=== PATIENT | male | born 1945 | race Caucasian/White ===

== ENCOUNTER → 2018-06-09 09:17 | Outpatient (CLI) | payer MEDICARE, OTHER, SELFPAY ==
[2018-06-09 11:22] LABS: Abs Immature Grans 0.04 k/cumm (0.0-0.09); Absolute Basophil Count 0.02 k/cumm (0.0-0.2); Absolute Eosinophil Count 0.08 k/cumm (0.0-0.7); Absolute Lymphocyte Count 0.57 k/cumm (1.2-3.4); Absolute Monocyte Count 0.58 k/cumm (0.11-0.7); Absolute Neutrophil Count 5.64 k/cumm (1.2-6.7); Basophils % 0.3; Eosinophils % 1.2; HCT 40.2 % (40.0-50.0); HGB 12.4 g/dL (13.5-17.5); Immature Grans % 0.6; Lymphocytes % 8.2; Mean Corp. HGB Concentration 30.8 g/dL (32.0-36.0); Mean Corpuscular Volume 77.9 fL (80-95); Monocytes % 8.4; Neutrophils % 81.3; Platelet Count 127 x1000/uL (130-400); RBC 5.16 m/cumm (4.50-6.00); RBC Distribution Width 17.8 % (11.8-14.1); White Blood Cell Count 6.93 k/cumm (4.4-10.8)
[2018-06-09 11:34] LABS: Prothrombin Time 40.3 sec (9.3-10.8)
[2018-06-09 11:43] LABS: ALT 83 U/L (12-78); AST 45 U/L (15-37); Albumin 3.4 g/dL (3.4-5.0); Alkaline Phosphatase 172 U/L (46-116); Anion Gap 13.5 mmol/L (3-11); BUN 20 mg/dL (7-18); CO2 22.5 mmol/L (21.0-32.0); CREATININE 0.95 mg/dL (0.70-1.30); Calcium 8.2 mg/dL (8.5-10.1); Chloride 104 mmol/L (98-107); Glucose 121 mg/dL (70-100); Potassium 3.8 mmol/L (3.5-5.1); Sodium 140 mmol/L (136-145); Total Protein 6.6 g/dL (6.4-8.2)
[2018-06-09 11:45] LABS: Hemoglobin A1C 11.2 % (4.5-6.2)
[2018-06-09 11:52] LABS: INR 4.4 (1.0-3.5)
== END ==
PROVIDERS: Internal Medicine Gastroenterology; PCP Emergency Medicine; Visit Provider Emergency Medicine
DX: E11.9 Type 2 diabetes mellitus without complications (principal); I26.99 Other pulmonary embolism without acute cor pulmonale; K75.4 Autoimmune hepatitis; D69.3 Immune thrombocytopenic purpura; Z79.01 Long term (current) use of anticoagulants
CPT/HCPCS: 36415; 80053; 83036; 85025; 85610

== ENCOUNTER → 2018-06-16 10:15 | Outpatient (CLI) | payer MEDICARE, OTHER, SELFPAY ==
[2018-06-16 11:03] LABS: Abs Immature Grans 0.03 k/cumm (0.0-0.09); Absolute Basophil Count 0.02 k/cumm (0.0-0.2); Absolute Eosinophil Count 0.09 k/cumm (0.0-0.7); Absolute Lymphocyte Count 0.73 k/cumm (1.2-3.4); Absolute Monocyte Count 0.57 k/cumm (0.11-0.7); Absolute Neutrophil Count 5.41 k/cumm (1.2-6.7); Basophils % 0.3; Eosinophils % 1.3; HCT 43.1 % (40.0-50.0); HGB 13.3 g/dL (13.5-17.5); Immature Grans % 0.4; Lymphocytes % 10.7; Mean Corp. HGB Concentration 30.9 g/dL (32.0-36.0); Mean Corpuscular Hemoglobin 24.1 pg (27.0-33.0); Mean Corpuscular Volume 77.9 fL (80-95); Mean Platelet Volume 10.8 fL (8.0-11.0); Monocytes % 8.3; Platelet Count 142 x1000/uL (130-400); RBC 5.53 m/cumm (4.50-6.00); White Blood Cell Count 6.85 k/cumm (4.4-10.8)
[2018-06-16 11:11] LABS: INR 1.4 (1.0-3.5); Prothrombin Time 13.8 sec (9.3-10.8)
[2018-06-16 11:17] LABS: ALT 80 U/L (12-78); AST 51 U/L (15-37); Albumin 3.6 g/dL (3.4-5.0); Alkaline Phosphatase 209 U/L (46-116); BUN 16 mg/dL (7-18); Bilirubin, Total 2.3 mg/dL (0.2-1.0); Calcium 9.3 mg/dL (8.5-10.1); Chloride 99 mmol/L (98-107); Glucose 129 mg/dL (70-100); Potassium 4.1 mmol/L (3.5-5.1); Sodium 137 mmol/L (136-145); Total Protein 7.7 g/dL (6.4-8.2)
[2018-06-16 11:38] LABS: Anisocytosis 2+; Diff Comment RBC Morph Reviewed; Hypochromasia 1+; Microcytosis 2+; Poikilocytes 1+; Polychromasia Present
== END ==
PROVIDERS: PCP Emergency Medicine; Visit Provider Emergency Medicine
DX: D69.6 Thrombocytopenia, unspecified (principal); Z79.01 Long term (current) use of anticoagulants; K72.00 Acute and subacute hepatic failure without coma; K75.4 Autoimmune hepatitis; D69.3 Immune thrombocytopenic purpura; I26.99 Other pulmonary embolism without acute cor pulmonale
CPT/HCPCS: 36415; 80053; 85025; 85610

== ENCOUNTER → 2018-06-23 08:28 | Outpatient (CLI) | payer MEDICARE, OTHER, SELFPAY ==
[2018-06-23 10:28] LABS: Abs Immature Grans 0.02 k/cumm (0.0-0.09); Absolute Basophil Count 0.01 k/cumm (0.0-0.2); Absolute Eosinophil Count 0.08 k/cumm (0.0-0.7); Absolute Lymphocyte Count 0.72 k/cumm (1.2-3.4); Absolute Monocyte Count 0.62 k/cumm (0.11-0.7); Absolute Neutrophil Count 3.89 k/cumm (1.2-6.7); Basophils % 0.2; Eosinophils % 1.5; HCT 41.5 % (40.0-50.0); HGB 12.7 g/dL (13.5-17.5); Immature Grans % 0.4; Lymphocytes % 13.5; Mean Corp. HGB Concentration 30.6 g/dL (32.0-36.0); Mean Corpuscular Hemoglobin 24.1 pg (27.0-33.0); Mean Corpuscular Volume 78.7 fL (80-95); Mean Platelet Volume 10.1 fL (8.0-11.0); Monocytes % 11.6; Neutrophils % 72.8; Platelet Count 133 x1000/uL (130-400); RBC 5.27 m/cumm (4.50-6.00); RBC Distribution Width 18.6 % (11.8-14.1); White Blood Cell Count 5.34 k/cumm (4.4-10.8)
[2018-06-23 10:37] LABS: INR 2.8 (1.0-3.5); Prothrombin Time 26.6 sec (9.3-10.8)
[2018-06-23 11:28] LABS: ALT 105 U/L (12-78); AST 76 U/L (15-37); Albumin 3.6 g/dL (3.4-5.0); Alkaline Phosphatase 240 U/L (46-116); Anion Gap 8.1 mmol/L (3-11); BUN 16 mg/dL (7-18); Bilirubin, Direct 0.31 mg/dL (0.00-0.20); Bilirubin, Total 1.2 mg/dL (0.2-1.0); CO2 25.9 mmol/L (21.0-32.0); CREATININE 0.99 mg/dL (0.70-1.30); Calcium 8.8 mg/dL (8.5-10.1); Chloride 102 mmol/L (98-107); Glucose 144 mg/dL (70-100); Potassium 4.3 mmol/L (3.5-5.1); Sodium 136 mmol/L (136-145); Total Protein 6.8 g/dL (6.4-8.2)
== END ==
PROVIDERS: PCP Emergency Medicine; Visit Provider Emergency Medicine
DX: K75.9 Inflammatory liver disease, unspecified (principal); D69.6 Thrombocytopenia, unspecified; I26.99 Other pulmonary embolism without acute cor pulmonale; Z79.01 Long term (current) use of anticoagulants
CPT/HCPCS: 36415; 80053; 82247; 82248; 85025; 85610

== ENCOUNTER → 2018-07-01 03:40 | Outpatient (CLI) | payer MEDICARE, OTHER, SELFPAY ==
[2018-07-01 09:42] LABS: Abs Immature Grans 0.03 k/cumm (0.0-0.09); Absolute Basophil Count 0.02 k/cumm (0.0-0.2); Absolute Eosinophil Count 0.06 k/cumm (0.0-0.7); Absolute Lymphocyte Count 0.53 k/cumm (1.2-3.4); Absolute Monocyte Count 0.74 k/cumm (0.11-0.7); Absolute Neutrophil Count 4.65 k/cumm (1.2-6.7); Basophils % 0.3; HCT 40.3 % (40.0-50.0); HGB 12.3 g/dL (13.5-17.5); Immature Grans % 0.5; Lymphocytes % 8.8; Mean Corp. HGB Concentration 30.5 g/dL (32.0-36.0); Mean Corpuscular Hemoglobin 23.8 pg (27.0-33.0); Mean Corpuscular Volume 77.9 fL (80-95); Mean Platelet Volume 9.7 fL (8.0-11.0); Monocytes % 12.3; Neutrophils % 77.1; Platelet Count 132 x1000/uL (130-400); RBC 5.17 m/cumm (4.50-6.00); RBC Distribution Width 18.6 % (11.8-14.1); White Blood Cell Count 6.03 k/cumm (4.4-10.8)
[2018-07-01 09:47] LABS: INR 3.6 (1.0-3.5); Prothrombin Time 33.6 sec (9.3-10.8)
[2018-07-01 10:33] LABS: ALT 87 U/L (12-78); AST 71 U/L (15-37); Albumin 3.6 g/dL (3.4-5.0); Alkaline Phosphatase 207 U/L (46-116); BUN 17 mg/dL (7-18); Bilirubin, Total 1.1 mg/dL (0.2-1.0); CREATININE 0.99 mg/dL (0.70-1.30); Calcium 8.4 mg/dL (8.5-10.1); Chloride 104 mmol/L (98-107); Glucose 110 mg/dL (70-100); Potassium 4.1 mmol/L (3.5-5.1); Sodium 137 mmol/L (136-145); Total Protein 6.6 g/dL (6.4-8.2)
== END ==
PROVIDERS: PCP Emergency Medicine; Visit Provider Emergency Medicine
DX: D69.6 Thrombocytopenia, unspecified (principal); I26.99 Other pulmonary embolism without acute cor pulmonale; Z79.01 Long term (current) use of anticoagulants
CPT/HCPCS: 36415; 80053; 85025; 85610

== ENCOUNTER 2018-07-08 10:17 | Outpatient (CLI) | payer MEDICARE, OTHER, SELFPAY ==
[2018-07-08 11:28] LABS: Abs Immature Grans 0.02 k/cumm (0.0-0.09); Absolute Basophil Count 0.02 k/cumm (0.0-0.2); Absolute Eosinophil Count 0.04 k/cumm (0.0-0.7); Absolute Lymphocyte Count 0.69 k/cumm (1.2-3.4); Absolute Monocyte Count 0.44 k/cumm (0.11-0.7); Basophils % 0.3; Eosinophils % 0.6; HCT 39.5 % (40.0-50.0); HGB 12.3 g/dL (13.5-17.5); Immature Grans % 0.3; Lymphocytes % 10.6; Mean Corp. HGB Concentration 31.1 g/dL (32.0-36.0); Mean Corpuscular Hemoglobin 24.3 pg (27.0-33.0); Mean Corpuscular Volume 77.9 fL (80-95); Mean Platelet Volume 10.5 fL (8.0-11.0); Monocytes % 6.8; Neutrophils % 81.4; Platelet Count 137 x1000/uL (130-400); RBC 5.07 m/cumm (4.50-6.00); RBC Distribution Width 18.7 % (11.8-14.1); White Blood Cell Count 6.51 k/cumm (4.4-10.8)
[2018-07-08 11:30] LABS: INR 3.9 (1.0-3.5); Prothrombin Time 36.4 sec (9.3-10.8)
[2018-07-08 12:23] LABS: ALT 71 U/L (12-78); AST 50 U/L (15-37); Albumin 3.5 g/dL (3.4-5.0); Alkaline Phosphatase 219 U/L (46-116); Anion Gap 8.3 mmol/L (3-11); BUN 20 mg/dL (7-18); Bilirubin, Total 1.1 mg/dL (0.2-1.0); CO2 26.7 mmol/L (21.0-32.0); CREATININE 1.25 mg/dL (0.70-1.30); Calcium 8.7 mg/dL (8.5-10.1); Chloride 100 mmol/L (98-107); Estimated GFR 56.31 (mL/min/1.73m2); Glucose 368 mg/dL (70-100); Potassium 4.6 mmol/L (3.5-5.1); Sodium 135 mmol/L (136-145); Total Protein 6.4 g/dL (6.4-8.2)
== END 2018-07-08 10:37 ==
PROVIDERS: PCP Emergency Medicine; Visit Provider Emergency Medicine
DX: I26.99 Other pulmonary embolism without acute cor pulmonale (principal); Z79.01 Long term (current) use of anticoagulants; D69.6 Thrombocytopenia, unspecified
CPT/HCPCS: 36415; 80053; 85025; 85610

== ENCOUNTER 2018-07-14 08:55 | Outpatient (CLI) | payer MEDICARE, OTHER, SELFPAY ==
[2018-07-14 15:27] LABS: Abs Immature Grans 0.02 k/cumm (0.0-0.09); Absolute Basophil Count 0.01 k/cumm (0.0-0.2); Absolute Eosinophil Count 0.07 k/cumm (0.0-0.7); Absolute Lymphocyte Count 0.69 k/cumm (1.2-3.4); Absolute Monocyte Count 0.43 k/cumm (0.11-0.7); Absolute Neutrophil Count 4.63 k/cumm (1.2-6.7); Basophils % 0.2; Eosinophils % 1.2; HCT 41.4 % (40.0-50.0); HGB 12.6 g/dL (13.5-17.5); Immature Grans % 0.3; Lymphocytes % 11.8; Mean Corp. HGB Concentration 30.4 g/dL (32.0-36.0); Mean Corpuscular Hemoglobin 24.1 pg (27.0-33.0); Mean Corpuscular Volume 79.2 fL (80-95); Mean Platelet Volume 9.8 fL (8.0-11.0); Monocytes % 7.4; Neutrophils % 79.1; Platelet Count 157 x1000/uL (130-400); RBC 5.23 m/cumm (4.50-6.00); RBC Distribution Width 19.1 % (11.8-14.1); White Blood Cell Count 5.85 k/cumm (4.4-10.8)
[2018-07-14 15:40] LABS: INR 2.6 (1.0-3.5); Prothrombin Time 24.3 sec (9.3-10.8)
[2018-07-14 16:26] LABS: Anisocytosis 1+; Microcytosis 2+; Poikilocytes 1+
[2018-07-14 16:31] LABS: ALT 91 U/L (12-78); AST 74 U/L (15-37); Albumin 3.6 g/dL (3.4-5.0); Alkaline Phosphatase 255 U/L (46-116); Anion Gap 7.5 mmol/L (3-11); BUN 15 mg/dL (7-18); Bilirubin, Total 1.5 mg/dL (0.2-1.0); CO2 30.5 mmol/L (21.0-32.0); CREATININE 0.95 mg/dL (0.70-1.30); Calcium 8.9 mg/dL (8.5-10.1); Chloride 103 mmol/L (98-107); Glucose 174 mg/dL (70-100); Potassium 4.4 mmol/L (3.5-5.1); Sodium 141 mmol/L (136-145); Total Protein 6.8 g/dL (6.4-8.2)
== END 2018-07-14 09:15 ==
PROVIDERS: PCP Emergency Medicine; Visit Provider Emergency Medicine
DX: I26.99 Other pulmonary embolism without acute cor pulmonale (principal); Z79.01 Long term (current) use of anticoagulants; D69.6 Thrombocytopenia, unspecified
CPT/HCPCS: 36415; 80053; 85025; 85610

== ENCOUNTER 2018-07-21 10:17 | Outpatient (CLI) | payer MEDICARE, OTHER, SELFPAY ==
[2018-07-21 17:41] LABS: INR 3.4 (1.0-3.5); Prothrombin Time 31.9 sec (9.3-10.8)
[2018-07-21 17:45] LABS: Abs Immature Grans 0.02 k/cumm (0.0-0.09); Absolute Basophil Count 0.01 k/cumm (0.0-0.2); Absolute Eosinophil Count 0.01 k/cumm (0.0-0.7); Absolute Lymphocyte Count 0.55 k/cumm (1.2-3.4); Absolute Monocyte Count 0.19 k/cumm (0.11-0.7); Absolute Neutrophil Count 7.85 k/cumm (1.2-6.7); Basophils % 0.1; Eosinophils % 0.1; HGB 13.3 g/dL (13.5-17.5); Immature Grans % 0.2; Lymphocytes % 6.4; Mean Corp. HGB Concentration 30.9 g/dL (32.0-36.0); Mean Corpuscular Volume 77.5 fL (80-95); Mean Platelet Volume 10.3 fL (8.0-11.0); Monocytes % 2.2; Platelet Count 191 x1000/uL (130-400); RBC 5.55 m/cumm (4.50-6.00); RBC Distribution Width 19.7 % (11.8-14.1); White Blood Cell Count 8.63 k/cumm (4.4-10.8)
[2018-07-21 18:41] LABS: ALT 136 U/L (12-78); AST 79 U/L (15-37); Albumin 3.9 g/dL (3.4-5.0); Alkaline Phosphatase 270 U/L (46-116); Anion Gap 12.6 mmol/L (3-11); BUN 25 mg/dL (7-18); Bilirubin, Total 1.4 mg/dL (0.2-1.0); CO2 23.4 mmol/L (21.0-32.0); CREATININE 1.05 mg/dL (0.70-1.30); Calcium 9.4 mg/dL (8.5-10.1); Chloride 102 mmol/L (98-107); Glucose 153 mg/dL (70-100); Potassium 4.9 mmol/L (3.5-5.1); Sodium 138 mmol/L (136-145); Total Protein 7.1 g/dL (6.4-8.2)
== END 2018-07-21 10:37 ==
PROVIDERS: PCP Emergency Medicine; Visit Provider Emergency Medicine
DX: I26.99 Other pulmonary embolism without acute cor pulmonale (principal); Z79.01 Long term (current) use of anticoagulants; D69.6 Thrombocytopenia, unspecified
CPT/HCPCS: 36415; 80053; 85025; 85610

== ENCOUNTER 2018-07-28 08:44 | Outpatient (CLI) | payer MEDICARE, OTHER, SELFPAY ==
[2018-07-28 17:35] LABS: INR 3.7 (1.0-3.5); Prothrombin Time 34.3 sec (9.3-10.8)
[2018-07-28 17:36] LABS: Abs Immature Grans 0.03 k/cumm (0.0-0.09); Absolute Basophil Count 0.01 k/cumm (0.0-0.2); Absolute Eosinophil Count 0.01 k/cumm (0.0-0.7); Absolute Lymphocyte Count 0.66 k/cumm (1.2-3.4); Absolute Neutrophil Count 7.25 k/cumm (1.2-6.7); Basophils % 0.1; Eosinophils % 0.1; HCT 47.4 % (40.0-50.0); HGB 14.5 g/dL (13.5-17.5); Immature Grans % 0.4; Lymphocytes % 8.1; Mean Corp. HGB Concentration 30.6 g/dL (32.0-36.0); Mean Corpuscular Hemoglobin 23.8 pg (27.0-33.0); Mean Corpuscular Volume 77.8 fL (80-95); Mean Platelet Volume 10.6 fL (8.0-11.0); Monocytes % 2.5; Neutrophils % 88.8; Platelet Count 180 x1000/uL (130-400); RBC 6.09 m/cumm (4.50-6.00); RBC Distribution Width 20.2 % (11.8-14.1); White Blood Cell Count 8.16 k/cumm (4.4-10.8)
[2018-07-28 18:11] LABS: ALT 110 U/L (12-78); AST 81 U/L (15-37); Alkaline Phosphatase 268 U/L (46-116); Anion Gap 11.6 mmol/L (3-11); BUN 28 mg/dL (7-18); Bilirubin, Total 1.1 mg/dL (0.2-1.0); CO2 27.4 mmol/L (21.0-32.0); CREATININE 1.03 mg/dL (0.70-1.30); Calcium 9.4 mg/dL (8.5-10.1); Chloride 100 mmol/L (98-107); Glucose 224 mg/dL (70-100); Potassium 4.7 mmol/L (3.5-5.1); Sodium 139 mmol/L (136-145); Total Protein 7.5 g/dL (6.4-8.2)
== END 2018-07-28 09:04 ==
PROVIDERS: PCP Emergency Medicine; Visit Provider Emergency Medicine
DX: I26.99 Other pulmonary embolism without acute cor pulmonale (principal); Z79.01 Long term (current) use of anticoagulants; D69.6 Thrombocytopenia, unspecified
CPT/HCPCS: 36415; 80053; 85025; 85610

== ENCOUNTER 2018-07-30 09:40 | Outpatient (CLI) | payer MEDICARE, OTHER, SELFPAY ==
[2018-07-30 16:19] LABS: INR 2.1 (1.0-3.5)
== END 2018-07-30 10:00 ==
PROVIDERS: PCP Emergency Medicine; Visit Provider Emergency Medicine
DX: I26.99 Other pulmonary embolism without acute cor pulmonale (principal); Z79.01 Long term (current) use of anticoagulants
CPT/HCPCS: 36415; 85610

== ENCOUNTER 2018-08-18 01:49 | Outpatient (CLI) | payer MEDICARE, OTHER, SELFPAY ==
[2018-08-18 12:03] LABS: Abs Immature Grans 0.04 k/cumm (0.0-0.09); Absolute Basophil Count 0.01 k/cumm (0.0-0.2); Absolute Eosinophil Count 0.07 k/cumm (0.0-0.7); Absolute Lymphocyte Count 0.77 k/cumm (1.2-3.4); Absolute Monocyte Count 0.57 k/cumm (0.11-0.7); Absolute Neutrophil Count 7.95 k/cumm (1.2-6.7); Basophils % 0.1; Eosinophils % 0.7; HCT 46.3 % (40.0-50.0); HGB 14.4 g/dL (13.5-17.5); Immature Grans % 0.4; Lymphocytes % 8.2; Mean Corp. HGB Concentration 31.1 g/dL (32.0-36.0); Mean Corpuscular Hemoglobin 24.4 pg (27.0-33.0); Mean Corpuscular Volume 78.6 fL (80-95); Mean Platelet Volume 10.6 fL (8.0-11.0); Monocytes % 6.1; Neutrophils % 84.5; Platelet Count 190 x1000/uL (130-400); RBC 5.89 m/cumm (4.50-6.00); RBC Distribution Width 20.5 % (11.8-14.1); White Blood Cell Count 9.41 k/cumm (4.4-10.8)
[2018-08-18 12:06] LABS: Hemoglobin A1C 8.7 % (4.5-6.2)
[2018-08-18 12:30] LABS: ALT 130 U/L (12-78); AST 68 U/L (15-37); Albumin 3.9 g/dL (3.4-5.0); Alkaline Phosphatase 230 U/L (46-116); Anion Gap 10.6 mmol/L (3-11); BUN 20 mg/dL (7-18); Bilirubin, Total 1.7 mg/dL (0.2-1.0); CO2 29.4 mmol/L (21.0-32.0); CREATININE 1.02 mg/dL (0.70-1.30); Calcium 9.9 mg/dL (8.5-10.1); Chloride 98 mmol/L (98-107); Glucose 195 mg/dL (70-100); Potassium 4.5 mmol/L (3.5-5.1); Sodium 138 mmol/L (136-145); Total Protein 7.5 g/dL (6.4-8.2)
== END 2018-08-18 02:09 ==
PROVIDERS: PCP Emergency Medicine; Visit Provider Emergency Medicine
DX: E11.9 Type 2 diabetes mellitus without complications (principal); D69.6 Thrombocytopenia, unspecified
CPT/HCPCS: 36415; 80053; 83036; 85025; 85610

== ENCOUNTER 2018-09-01 01:41 | Outpatient (CLI) | payer MEDICARE, OTHER, SELFPAY ==
[2018-09-01 15:35] LABS: Abs Immature Grans 0.03 k/cumm (0.0-0.09); Absolute Basophil Count 0.01 k/cumm (0.0-0.2); Absolute Eosinophil Count 0.02 k/cumm (0.0-0.7); Absolute Lymphocyte Count 0.92 k/cumm (1.2-3.4); Absolute Monocyte Count 0.37 k/cumm (0.11-0.7); Absolute Neutrophil Count 7.83 k/cumm (1.2-6.7); Basophils % 0.1; Eosinophils % 0.2; HCT 44.8 % (40.0-50.0); HGB 14.1 g/dL (13.5-17.5); Immature Grans % 0.3; Mean Corp. HGB Concentration 31.5 g/dL (32.0-36.0); Mean Corpuscular Hemoglobin 24.7 pg (27.0-33.0); Mean Corpuscular Volume 78.6 fL (80-95); Neutrophils % 85.4; Platelet Count 202 x1000/uL (130-400); RBC Distribution Width 19.6 % (11.8-14.1); White Blood Cell Count 9.18 k/cumm (4.4-10.8)
[2018-09-01 15:47] LABS: Anisocytosis 2+; Diff Comment RBC Morph Reviewed
[2018-09-01 15:48] LABS: Hypochromasia 2+; Microcytosis 2+; Polychromasia Present
[2018-09-01 16:55] LABS: ALT 138 U/L (12-78); AST 73 U/L (15-37); Albumin 3.9 g/dL (3.4-5.0); Alkaline Phosphatase 242 U/L (46-116); Anion Gap 15.1 mmol/L (3-11); BUN 24 mg/dL (7-18); Bilirubin, Total 1.5 mg/dL (0.2-1.0); CO2 23.9 mmol/L (21.0-32.0); Calcium 9.5 mg/dL (8.5-10.1); Chloride 98 mmol/L (98-107); Glucose 206 mg/dL (70-100); Potassium 4.5 mmol/L (3.5-5.1); Sodium 137 mmol/L (136-145); Total Protein 7.2 g/dL (6.4-8.2)
== END 2018-09-01 02:01 ==
PROVIDERS: PCP Emergency Medicine; Visit Provider Emergency Medicine
DX: D69.6 Thrombocytopenia, unspecified (principal)
CPT/HCPCS: 36415; 80053; 85025

== ENCOUNTER 2018-09-15 15:50 | Outpatient (CLI) | payer MEDICARE, OTHER, SELFPAY ==
[2018-09-15 17:04] LABS: Abs Immature Grans 0.02 k/cumm (0.0-0.09); Absolute Basophil Count 0.01 k/cumm (0.0-0.2); Absolute Eosinophil Count 0.01 k/cumm (0.0-0.7); Absolute Lymphocyte Count 0.51 k/cumm (1.2-3.4); Absolute Monocyte Count 0.25 k/cumm (0.11-0.7); Absolute Neutrophil Count 6.73 k/cumm (1.2-6.7); Basophils % 0.1; Eosinophils % 0.1; HCT 44.6 % (40.0-50.0); HGB 14.1 g/dL (13.5-17.5); Immature Grans % 0.3; Lymphocytes % 6.8; Mean Corp. HGB Concentration 31.6 g/dL (32.0-36.0); Mean Corpuscular Hemoglobin 25.3 pg (27.0-33.0); Mean Corpuscular Volume 79.9 fL (80-95); Monocytes % 3.3; Neutrophils % 89.4; Platelet Count 156 x1000/uL (130-400); RBC 5.58 m/cumm (4.50-6.00); White Blood Cell Count 7.53 k/cumm (4.4-10.8)
[2018-09-15 17:57] LABS: ALT 185 U/L (12-78); AST 131 U/L (15-37); Albumin 3.9 g/dL (3.4-5.0); Alkaline Phosphatase 215 U/L (46-116); Anion Gap 13.9 mmol/L (3-11); BUN 17 mg/dL (7-18); Bilirubin, Total 0.8 mg/dL (0.2-1.0); CO2 25.1 mmol/L (21.0-32.0); CREATININE 1.06 mg/dL (0.70-1.30); Calcium 9.3 mg/dL (8.5-10.1); Chloride 100 mmol/L (98-107); Glucose 181 mg/dL (70-100); Potassium 4.3 mmol/L (3.5-5.1); Sodium 139 mmol/L (136-145); Total Protein 7.3 g/dL (6.4-8.2)
== END 2018-09-15 16:10 ==
PROVIDERS: PCP Emergency Medicine; Visit Provider Emergency Medicine
DX: D69.6 Thrombocytopenia, unspecified (principal)
CPT/HCPCS: 36415; 80053; 85025

== ENCOUNTER 2018-09-22 07:56 | Outpatient (CLI) | payer MEDICARE, OTHER, SELFPAY ==
[2018-09-22 10:04] LABS: Abs Immature Grans 0.04 k/cumm (0.0-0.09); Absolute Basophil Count 0.02 k/cumm (0.0-0.2); Absolute Eosinophil Count 0.11 k/cumm (0.0-0.7); Absolute Lymphocyte Count 0.74 k/cumm (1.2-3.4); Absolute Monocyte Count 0.57 k/cumm (0.11-0.7); Absolute Neutrophil Count 6.99 k/cumm (1.2-6.7); Basophils % 0.2; Eosinophils % 1.3; HCT 46.1 % (40.0-50.0); HGB 14.4 g/dL (13.5-17.5); Immature Grans % 0.5; Lymphocytes % 8.7; Mean Corp. HGB Concentration 31.2 g/dL (32.0-36.0); Mean Corpuscular Hemoglobin 25.3 pg (27.0-33.0); Mean Corpuscular Volume 80.9 fL (80-95); Mean Platelet Volume 10.7 fL (8.0-11.0); Monocytes % 6.7; Neutrophils % 82.6; Platelet Count 160 x1000/uL (130-400); RBC Distribution Width 19.9 % (11.8-14.1); White Blood Cell Count 8.47 k/cumm (4.4-10.8)
[2018-09-22 11:27] LABS: ALT 162 U/L (12-78); AST 80 U/L (15-37); Alkaline Phosphatase 191 U/L (46-116); Anion Gap 10.9 mmol/L (3-11); BUN 15 mg/dL (7-18); Bilirubin, Total 0.9 mg/dL (0.2-1.0); CO2 29.1 mmol/L (21.0-32.0); CREATININE 1.08 mg/dL (0.70-1.30); Calcium 9.5 mg/dL (8.5-10.1); Chloride 102 mmol/L (98-107); Glucose 83 mg/dL (70-100); Potassium 3.7 mmol/L (3.5-5.1); Sodium 142 mmol/L (136-145); Total Protein 7.2 g/dL (6.4-8.2)
== END 2018-09-22 08:16 ==
PROVIDERS: PCP Emergency Medicine; Visit Provider Emergency Medicine
DX: D69.6 Thrombocytopenia, unspecified (principal)
CPT/HCPCS: 36415; 80053; 85025

== ENCOUNTER 2018-10-06 16:21 | Outpatient (CLI) | payer MEDICARE, OTHER, SELFPAY ==
[2018-10-06 16:58] LABS: Abs Immature Grans 0.02 k/cumm (0.0-0.09); Absolute Basophil Count 0.01 k/cumm (0.0-0.2); Absolute Eosinophil Count 0.01 k/cumm (0.0-0.7); Absolute Monocyte Count 0.29 k/cumm (0.11-0.7); Absolute Neutrophil Count 7.08 k/cumm (1.2-6.7); Basophils % 0.1; Eosinophils % 0.1; HCT 45.4 % (40.0-50.0); HGB 14.6 g/dL (13.5-17.5); Immature Grans % 0.2; Lymphocytes % 7.5; Mean Corp. HGB Concentration 32.2 g/dL (32.0-36.0); Mean Corpuscular Hemoglobin 25.8 pg (27.0-33.0); Mean Corpuscular Volume 80.4 fL (80-95); Mean Platelet Volume 10.5 fL (8.0-11.0); Monocytes % 3.6; Neutrophils % 88.5; Platelet Count 152 x1000/uL (130-400); RBC 5.65 m/cumm (4.50-6.00); RBC Distribution Width 19.3 % (11.8-14.1); White Blood Cell Count 8.01 k/cumm (4.4-10.8)
[2018-10-06 18:01] LABS: ALT 143 U/L (12-78); AST 77 U/L (15-37); Alkaline Phosphatase 172 U/L (46-116); Anion Gap 13.1 mmol/L (3-11); BUN 24 mg/dL (7-18); Bilirubin, Total 1.2 mg/dL (0.2-1.0); CO2 23.9 mmol/L (21.0-32.0); CREATININE 0.94 mg/dL (0.70-1.30); Calcium 9.8 mg/dL (8.5-10.1); Chloride 100 mmol/L (98-107); Glucose 173 mg/dL (70-100); Potassium 4.5 mmol/L (3.5-5.1); Sodium 137 mmol/L (136-145); Total Protein 7.3 g/dL (6.4-8.2)
== END 2018-10-06 16:41 ==
PROVIDERS: PCP Emergency Medicine; Visit Provider Emergency Medicine
DX: D69.6 Thrombocytopenia, unspecified (principal)
CPT/HCPCS: 36415; 80053; 85025

== ENCOUNTER 2018-10-20 10:12 | Outpatient (CLI) | payer MEDICARE, OTHER, SELFPAY ==
[2018-10-20 16:05] LABS: Abs Immature Grans 0.03 k/cumm (0.0-0.09); Absolute Basophil Count 0.01 k/cumm (0.0-0.2); Absolute Eosinophil Count 0.04 k/cumm (0.0-0.7); Absolute Neutrophil Count 6.64 k/cumm (1.2-6.7); Basophils % 0.1; Eosinophils % 0.5; HCT 45.5 % (40.0-50.0); HGB 14.5 g/dL (13.5-17.5); Immature Grans % 0.4; Lymphocytes % 7.9; Mean Corp. HGB Concentration 31.9 g/dL (32.0-36.0); Mean Corpuscular Volume 81.5 fL (80-95); Mean Platelet Volume 9.7 fL (8.0-11.0); Monocytes % 3.9; Neutrophils % 87.2; Platelet Count 117 x1000/uL (130-400); RBC 5.58 m/cumm (4.50-6.00); RBC Distribution Width 19.5 % (11.8-14.1); White Blood Cell Count 7.62 k/cumm (4.4-10.8)
[2018-10-20 16:47] LABS: ALT 90 U/L (12-78); AST 53 U/L (15-37); Albumin 3.8 g/dL (3.4-5.0); Alkaline Phosphatase 136 U/L (46-116); Anion Gap 11.7 mmol/L (3-11); BUN 19 mg/dL (7-18); Bilirubin, Total 1.4 mg/dL (0.2-1.0); CO2 27.3 mmol/L (21.0-32.0); Calcium 9.9 mg/dL (8.5-10.1); Chloride 103 mmol/L (98-107); Glucose 180 mg/dL (70-100); Potassium 4.2 mmol/L (3.5-5.1); Sodium 142 mmol/L (136-145); Total Protein 6.9 g/dL (6.4-8.2)
[2018-10-22 10:27] LABS: Cholesterol 333 mg/dL (50-200); HDL Cholesterol 68 mg/dL (40-60); LDL CHOLESTEROL 202 mg/dL (<100); Triglyceride 414 mg/dL (30-150)
== END 2018-10-20 10:32 ==
PROVIDERS: PCP Emergency Medicine; Visit Provider Emergency Medicine
DX: D69.6 Thrombocytopenia, unspecified (principal); E78.5 Hyperlipidemia, unspecified
CPT/HCPCS: 36415; 80053; 80061; 83721; 85025

== ENCOUNTER 2018-10-30 11:21 | Outpatient (CLI) | payer MEDICARE, OTHER, SELFPAY ==
[2018-10-30 17:05] LABS: Abs Immature Grans 0.01 k/cumm (0.0-0.09); Absolute Basophil Count 0.01 k/cumm (0.0-0.2); Absolute Lymphocyte Count 0.38 k/cumm (1.2-3.4); Absolute Monocyte Count 0.16 k/cumm (0.11-0.7); Absolute Neutrophil Count 6.41 k/cumm (1.2-6.7); Basophils % 0.1; HCT 43.5 % (40.0-50.0); HGB 13.9 g/dL (13.5-17.5); Immature Grans % 0.1; Lymphocytes % 5.5; Mean Corpuscular Hemoglobin 26.3 pg (27.0-33.0); Mean Corpuscular Volume 82.4 fL (80-95); Mean Platelet Volume 10.1 fL (8.0-11.0); Monocytes % 2.3; Platelet Count 132 x1000/uL (130-400); RBC 5.28 m/cumm (4.50-6.00); RBC Distribution Width 18.7 % (11.8-14.1); White Blood Cell Count 6.97 k/cumm (4.4-10.8)
[2018-10-30 18:03] LABS: ALT 129 U/L (12-78); AST 68 U/L (15-37); Albumin 3.7 g/dL (3.4-5.0); Alkaline Phosphatase 142 U/L (46-116); Anion Gap 11.9 mmol/L (3-11); BUN 20 mg/dL (7-18); Bilirubin, Total 1.1 mg/dL (0.2-1.0); CO2 24.1 mmol/L (21.0-32.0); CREATININE 0.95 mg/dL (0.70-1.30); Calcium 9.9 mg/dL (8.5-10.1); Chloride 104 mmol/L (98-107); Glucose 241 mg/dL (70-100); Potassium 4.4 mmol/L (3.5-5.1); Sodium 140 mmol/L (136-145); Total Protein 6.7 g/dL (6.4-8.2)
== END 2018-10-30 11:41 ==
PROVIDERS: PCP Emergency Medicine; Visit Provider Internal Medicine Gastroenterology
DX: D69.6 Thrombocytopenia, unspecified (principal)
CPT/HCPCS: 36415; 80053; 85025

== ENCOUNTER 2018-11-03 08:47 | Outpatient (CLI) | payer MEDICARE, OTHER, SELFPAY ==
[2018-11-03 11:21] LABS: Abs Immature Grans 0.01 k/cumm (0.0-0.09); Absolute Basophil Count 0.01 k/cumm (0.0-0.2); Absolute Eosinophil Count 0.05 k/cumm (0.0-0.7); Absolute Lymphocyte Count 0.54 k/cumm (1.2-3.4); Absolute Monocyte Count 0.57 k/cumm (0.11-0.7); Absolute Neutrophil Count 4.61 k/cumm (1.2-6.7); Basophils % 0.2; Eosinophils % 0.9; HGB 13.9 g/dL (13.5-17.5); Immature Grans % 0.2; Lymphocytes % 9.3; Mean Corp. HGB Concentration 32.3 g/dL (32.0-36.0); Mean Corpuscular Hemoglobin 26.6 pg (27.0-33.0); Mean Corpuscular Volume 82.2 fL (80-95); Mean Platelet Volume 10.2 fL (8.0-11.0); Monocytes % 9.8; Neutrophils % 79.6; Platelet Count 119 x1000/uL (130-400); RBC 5.23 m/cumm (4.50-6.00); RBC Distribution Width 18.4 % (11.8-14.1); White Blood Cell Count 5.79 k/cumm (4.4-10.8)
[2018-11-03 11:37] LABS: Anisocytosis 1+; Diff Comment RBC Morph Reviewed
[2018-11-03 12:04] LABS: ALT 84 U/L (12-78); AST 51 U/L (15-37); Albumin 3.7 g/dL (3.4-5.0); Alkaline Phosphatase 126 U/L (46-116); BUN 15 mg/dL (7-18); CREATININE 0.89 mg/dL (0.70-1.30); Calcium 9.1 mg/dL (8.5-10.1); Chloride 104 mmol/L (98-107); Glucose 78 mg/dL (70-100); Potassium 3.3 mmol/L (3.5-5.1); Sodium 142 mmol/L (136-145); Total Protein 6.6 g/dL (6.4-8.2)
== END 2018-11-03 09:07 ==
PROVIDERS: PCP Emergency Medicine; Visit Provider Emergency Medicine
DX: D69.6 Thrombocytopenia, unspecified (principal)
CPT/HCPCS: 36415; 80053; 85025

== ENCOUNTER 2018-11-10 07:35 | Outpatient (CLI) | payer MEDICARE, OTHER, SELFPAY ==
[2018-11-10 12:44] LABS: Abs Immature Grans 0.03 k/cumm (0.0-0.09); Absolute Eosinophil Count 0.02 k/cumm (0.0-0.7); Absolute Lymphocyte Count 0.61 k/cumm (1.2-3.4); Absolute Neutrophil Count 7.49 k/cumm (1.2-6.7); Eosinophils % 0.2; HCT 46.5 % (40.0-50.0); HGB 14.9 g/dL (13.5-17.5); Immature Grans % 0.4; Lymphocytes % 7.1; Mean Corpuscular Hemoglobin 26.4 pg (27.0-33.0); Mean Corpuscular Volume 82.3 fL (80-95); Mean Platelet Volume 10.5 fL (8.0-11.0); Monocytes % 4.7; Neutrophils % 87.6; Platelet Count 139 x1000/uL (130-400); RBC 5.65 m/cumm (4.50-6.00); RBC Distribution Width 18.7 % (11.8-14.1); White Blood Cell Count 8.55 k/cumm (4.4-10.8)
[2018-11-10 12:55] LABS: ALT 87 U/L (12-78); AST 41 U/L (15-37); Albumin 3.9 g/dL (3.4-5.0); Alkaline Phosphatase 140 U/L (46-116); Anion Gap 12.5 mmol/L (3-11); BUN 20 mg/dL (7-18); Bilirubin, Total 1.3 mg/dL (0.2-1.0); CO2 25.5 mmol/L (21.0-32.0); CREATININE 1.06 mg/dL (0.70-1.30); Calcium 9.9 mg/dL (8.5-10.1); Chloride 102 mmol/L (98-107); Glucose 101 mg/dL (70-100); Sodium 140 mmol/L (136-145); Total Protein 7.6 g/dL (6.4-8.2)
== END 2018-11-10 07:55 ==
PROVIDERS: PCP Emergency Medicine; Visit Provider Emergency Medicine
DX: D69.6 Thrombocytopenia, unspecified (principal)
CPT/HCPCS: 36415; 80053; 85025

== ENCOUNTER 2018-11-17 02:30 | Outpatient (CLI) | payer MEDICARE, OTHER, SELFPAY ==
[2018-11-17 14:42] LABS: Abs Immature Grans 0.01 k/cumm (0.0-0.09); Absolute Basophil Count 0.02 k/cumm (0.0-0.2); Absolute Eosinophil Count 0.12 k/cumm (0.0-0.7); Absolute Lymphocyte Count 0.84 k/cumm (1.2-3.4); Absolute Monocyte Count 0.55 k/cumm (0.11-0.7); Absolute Neutrophil Count 3.93 k/cumm (1.2-6.7); Basophils % 0.4; Eosinophils % 2.2; HCT 47.5 % (40.0-50.0); HGB 15.2 g/dL (13.5-17.5); Immature Grans % 0.2; Lymphocytes % 15.4; Mean Corpuscular Hemoglobin 26.9 pg (27.0-33.0); Mean Corpuscular Volume 84.1 fL (80-95); Monocytes % 10.1; Neutrophils % 71.7; Platelet Count 135 x1000/uL (130-400); RBC 5.65 m/cumm (4.50-6.00); RBC Distribution Width 17.6 % (11.8-14.1); White Blood Cell Count 5.47 k/cumm (4.4-10.8)
[2018-11-17 15:29] LABS: Hemoglobin A1C 7.6 % (4.5-6.2)
[2018-11-17 15:30] LABS: ALT 131 U/L (12-78); AST 101 U/L (15-37); Albumin 3.9 g/dL (3.4-5.0); Alkaline Phosphatase 170 U/L (46-116); Anion Gap 8.6 mmol/L (3-11); BUN 10 mg/dL (7-18); Bilirubin, Total 1.6 mg/dL (0.2-1.0); CO2 28.4 mmol/L (21.0-32.0); CREATININE 1.02 mg/dL (0.70-1.30); Calcium 9.3 mg/dL (8.5-10.1); Chloride 106 mmol/L (98-107); Glucose 123 mg/dL (70-100); Potassium 4.1 mmol/L (3.5-5.1); Sodium 143 mmol/L (136-145); Total Protein 6.8 g/dL (6.4-8.2)
== END 2018-11-17 02:50 ==
PROVIDERS: PCP Emergency Medicine; Visit Provider Emergency Medicine
DX: E11.9 Type 2 diabetes mellitus without complications (principal); D69.6 Thrombocytopenia, unspecified
CPT/HCPCS: 36415; 80053; 83036; 85025

== ENCOUNTER 2018-11-25 09:36 | Outpatient (CLI) | payer MEDICARE, OTHER, SELFPAY ==
[2018-11-25 11:02] LABS: Abs Immature Grans 0.01 k/cumm (0.0-0.09); Absolute Basophil Count 0.03 k/cumm (0.0-0.2); Absolute Eosinophil Count 0.15 k/cumm (0.0-0.7); Absolute Lymphocyte Count 0.88 k/cumm (1.2-3.4); Absolute Monocyte Count 0.55 k/cumm (0.11-0.7); Absolute Neutrophil Count 3.45 k/cumm (1.2-6.7); Basophils % 0.6; HCT 46.3 % (40.0-50.0); HGB 15.1 g/dL (13.5-17.5); Immature Grans % 0.2; Lymphocytes % 17.4; Mean Corp. HGB Concentration 32.6 g/dL (32.0-36.0); Mean Corpuscular Hemoglobin 26.8 pg (27.0-33.0); Mean Corpuscular Volume 82.1 fL (80-95); Mean Platelet Volume 10.3 fL (8.0-11.0); Monocytes % 10.8; Platelet Count 139 x1000/uL (130-400); RBC 5.64 m/cumm (4.50-6.00); White Blood Cell Count 5.07 k/cumm (4.4-10.8)
[2018-11-25 11:55] LABS: ALT 60 U/L (12-78); AST 46 U/L (15-37); Albumin 3.7 g/dL (3.4-5.0); Alkaline Phosphatase 136 U/L (46-116); Anion Gap 10.5 mmol/L (3-11); BUN 16 mg/dL (7-18); Bilirubin, Total 1.3 mg/dL (0.2-1.0); CO2 25.5 mmol/L (21.0-32.0); CREATININE 1.18 mg/dL (0.70-1.30); Chloride 105 mmol/L (98-107); Glucose 182 mg/dL (70-100); Sodium 141 mmol/L (136-145); Total Protein 6.6 g/dL (6.4-8.2)
== END 2018-11-25 09:56 ==
PROVIDERS: PCP Emergency Medicine; Visit Provider Emergency Medicine
DX: D69.6 Thrombocytopenia, unspecified (principal)
CPT/HCPCS: 36415; 80053; 85025

== ENCOUNTER 2018-12-01 09:50 | Outpatient (CLI) | payer MEDICARE, OTHER, SELFPAY ==
[2018-12-01 16:05] LABS: ALT 62 U/L (12-78); AST 50 U/L (15-37); Albumin 3.9 g/dL (3.4-5.0); Alkaline Phosphatase 148 U/L (46-116); Anion Gap 12.6 mmol/L (3-11); BUN 16 mg/dL (7-18); Bilirubin, Total 1.5 mg/dL (0.2-1.0); CO2 26.4 mmol/L (21.0-32.0); Calcium 9.5 mg/dL (8.5-10.1); Chloride 103 mmol/L (98-107); Glucose 82 mg/dL (70-100); Potassium 3.9 mmol/L (3.5-5.1); Sodium 142 mmol/L (136-145); Total Protein 6.9 g/dL (6.4-8.2)
== END 2018-12-01 10:10 ==
PROVIDERS: Internal Medicine Gastroenterology; PCP Emergency Medicine; Visit Provider Emergency Medicine
DX: D69.6 Thrombocytopenia, unspecified (principal)
CPT/HCPCS: 36415; 80053

== ENCOUNTER 2018-12-15 08:30 | Outpatient (CLI) | payer MEDICARE, OTHER, SELFPAY ==
[2018-12-15 12:12] LABS: ALT 70 U/L (12-78); AST 56 U/L (15-37); Albumin 3.8 g/dL (3.4-5.0); Alkaline Phosphatase 163 U/L (46-116); Anion Gap 10.6 mmol/L (3-11); BUN 12 mg/dL (7-18); Bilirubin, Total 1.9 mg/dL (0.2-1.0); CO2 24.4 mmol/L (21.0-32.0); CREATININE 1.03 mg/dL (0.70-1.30); Calcium 9.1 mg/dL (8.5-10.1); Chloride 104 mmol/L (98-107); Glucose 204 mg/dL (70-100); Potassium 4.1 mmol/L (3.5-5.1); Sodium 139 mmol/L (136-145); Total Protein 6.8 g/dL (6.4-8.2)
== END 2018-12-15 08:50 ==
PROVIDERS: PCP Emergency Medicine; Visit Provider Emergency Medicine
DX: D69.6 Thrombocytopenia, unspecified (principal)
CPT/HCPCS: 36415; 80053; 85025

== ENCOUNTER 2018-12-22 02:10 | Outpatient (CLI) | payer MEDICARE, OTHER, SELFPAY ==
[2018-12-22 15:44] LABS: Absolute Basophil Count 0.02 k/cumm (0.0-0.2); Absolute Eosinophil Count 0.19 k/cumm (0.0-0.7); Absolute Lymphocyte Count 0.93 k/cumm (1.2-3.4); Absolute Monocyte Count 0.67 k/cumm (0.11-0.7); Basophils % 0.4; Eosinophils % 3.5; HCT 47.1 % (40.0-50.0); HGB 15.3 g/dL (13.5-17.5); Lymphocytes % 17.2; Mean Corp. HGB Concentration 32.5 g/dL (32.0-36.0); Mean Corpuscular Hemoglobin 26.9 pg (27.0-33.0); Mean Corpuscular Volume 82.9 fL (80-95); Monocytes % 12.4; Neutrophils % 66.5; Platelet Count 144 x1000/uL (130-400); RBC 5.68 m/cumm (4.50-6.00); RBC Distribution Width 15.6 % (11.8-14.1); White Blood Cell Count 5.41 k/cumm (4.4-10.8)
[2018-12-22 17:01] LABS: ALT 59 U/L (12-78); AST 49 U/L (15-37); Albumin 3.9 g/dL (3.4-5.0); Alkaline Phosphatase 173 U/L (46-116); Anion Gap 11.4 mmol/L (3-11); BUN 12 mg/dL (7-18); Bilirubin, Total 1.8 mg/dL (0.2-1.0); CO2 27.6 mmol/L (21.0-32.0); CREATININE 1.01 mg/dL (0.70-1.30); Calcium 9.5 mg/dL (8.5-10.1); Chloride 103 mmol/L (98-107); Glucose 75 mg/dL (70-100); Potassium 3.9 mmol/L (3.5-5.1); Sodium 142 mmol/L (136-145); Total Protein 7.4 g/dL (6.4-8.2)
== END 2018-12-22 02:30 ==
PROVIDERS: PCP Emergency Medicine; Referring Provider Emergency Medicine; Visit Provider Internal Medicine Gastroenterology
DX: D69.6 Thrombocytopenia, unspecified (principal)
CPT/HCPCS: 36415; 80053; 85025

== ENCOUNTER 2019-01-05 11:20 | Outpatient (CLI) | payer MEDICARE, OTHER, SELFPAY ==
[2019-01-05 19:29] LABS: ALT 103 U/L (12-78); AST 83 U/L (15-37); Albumin 4.1 g/dL (3.4-5.0); Alkaline Phosphatase 178 U/L (46-116); Anion Gap 11.2 mmol/L (3-11); BUN 20 mg/dL (7-18); Bilirubin, Total 1.3 mg/dL (0.2-1.0); CO2 25.8 mmol/L (21.0-32.0); CREATININE 0.93 mg/dL (0.70-1.30); Calcium 9.6 mg/dL (8.5-10.1); Chloride 105 mmol/L (98-107); Cholesterol 175 mg/dL (50-200); Glucose 66 mg/dL (70-100); HDL Cholesterol 56 mg/dL (40-60); LDL CHOLESTEROL 79 mg/dL (<100); Potassium 4.1 mmol/L (3.5-5.1); Sodium 142 mmol/L (136-145); Total Protein 6.9 g/dL (6.4-8.2); Triglyceride 230 mg/dL (30-150)
== END 2019-01-05 11:40 ==
PROVIDERS: PCP Emergency Medicine; Visit Provider Emergency Medicine
DX: E78.5 Hyperlipidemia, unspecified (principal); D69.6 Thrombocytopenia, unspecified
CPT/HCPCS: 36415; 80053; 80061; 83721

== ENCOUNTER 2019-01-09 14:19 | Outpatient (CLI) | payer MEDICARE, OTHER, SELFPAY ==
[2019-01-09 17:07] LABS: ALT 77 U/L (12-78); AST 49 U/L (15-37); Albumin 3.9 g/dL (3.4-5.0); Alkaline Phosphatase 165 U/L (46-116); Anion Gap 11.9 mmol/L (3-11); BUN 17 mg/dL (7-18); Bilirubin, Total 1.8 mg/dL (0.2-1.0); CO2 25.1 mmol/L (21.0-32.0); CREATININE 1.01 mg/dL (0.70-1.30); Calcium 9.2 mg/dL (8.5-10.1); Chloride 103 mmol/L (98-107); Glucose 171 mg/dL (70-100); Potassium 3.7 mmol/L (3.5-5.1); Sodium 140 mmol/L (136-145); Total Protein 6.8 g/dL (6.4-8.2)
== END 2019-01-09 14:39 ==
PROVIDERS: PCP Emergency Medicine; Visit Provider Emergency Medicine
DX: D69.6 Thrombocytopenia, unspecified (principal)
CPT/HCPCS: 80053

== ENCOUNTER 2019-01-26 08:15 | Outpatient (CLI) | payer MEDICARE, OTHER, SELFPAY ==
[2019-01-26 15:53] LABS: ALT 65 U/L (12-78); AST 43 U/L (15-37); Albumin 4.4 g/dL (3.4-5.0); Alkaline Phosphatase 191 U/L (46-116); BUN 19 mg/dL (7-18); Bilirubin, Total 1.6 mg/dL (0.2-1.0); CREATININE 0.99 mg/dL (0.70-1.30); Chloride 102 mmol/L (98-107); Glucose 106 mg/dL (70-100); Potassium 3.9 mmol/L (3.5-5.1); Sodium 142 mmol/L (136-145); Total Protein 7.3 g/dL (6.4-8.2)
== END 2019-01-26 08:35 ==
PROVIDERS: PCP Emergency Medicine; Visit Provider Emergency Medicine
DX: D69.6 Thrombocytopenia, unspecified (principal)
CPT/HCPCS: 36415; 80053

== ENCOUNTER 2019-02-08 00:58 | Outpatient (CLI) | payer MEDICARE, OTHER, SELFPAY ==
[2019-02-08 12:05] LABS: ALT 77 U/L (12-78); AST 53 U/L (15-37); Albumin 4.3 g/dL (3.4-5.0); Alkaline Phosphatase 199 U/L (46-116); Anion Gap 10.1 mmol/L (3-11); BUN 17 mg/dL (7-18); Bilirubin, Total 1.6 mg/dL (0.2-1.0); CO2 28.9 mmol/L (21.0-32.0); CREATININE 0.96 mg/dL (0.70-1.30); Calcium 9.5 mg/dL (8.5-10.1); Chloride 102 mmol/L (98-107); Glucose 131 mg/dL (70-100); Sodium 141 mmol/L (136-145); Total Protein 7.2 g/dL (6.4-8.2)
== END 2019-02-08 01:18 ==
PROVIDERS: PCP Emergency Medicine; Visit Provider Emergency Medicine
DX: D69.6 Thrombocytopenia, unspecified (principal)
CPT/HCPCS: 36415; 80053; 85025

== ENCOUNTER 2019-02-23 01:41 | Outpatient (CLI) | payer MEDICARE, OTHER, SELFPAY ==
[2019-02-23 13:17] LABS: ALT 72 U/L (12-78); AST 48 U/L (15-37); Albumin 4.2 g/dL (3.4-5.0); Alkaline Phosphatase 188 U/L (46-116); Anion Gap 11.5 mmol/L (3-11); BUN 18 mg/dL (7-18); Bilirubin, Total 1.7 mg/dL (0.2-1.0); CO2 24.5 mmol/L (21.0-32.0); CREATININE 0.93 mg/dL (0.70-1.30); Calcium 9.4 mg/dL (8.5-10.1); Chloride 103 mmol/L (98-107); Glucose 111 mg/dL (70-100); Potassium 4.1 mmol/L (3.5-5.1); Sodium 139 mmol/L (136-145); Total Protein 7.2 g/dL (6.4-8.2)
== END 2019-02-23 02:01 ==
PROVIDERS: Internal Medicine Gastroenterology; PCP Emergency Medicine; Visit Provider Emergency Medicine
DX: D69.6 Thrombocytopenia, unspecified (principal)
CPT/HCPCS: 36415; 80053

== ENCOUNTER 2019-03-03 01:37 | Outpatient (CLI) | payer MEDICARE, OTHER, SELFPAY ==
[2019-03-03 10:33] LABS: Hemoglobin A1C 6.6 % (4.5-6.2)
[2019-03-03 11:01] LABS: ALT 68 U/L (12-78); AST 51 U/L (15-37); Alkaline Phosphatase 189 U/L (46-116); Anion Gap 14.6 mmol/L (3-11); BUN 20 mg/dL (7-18); Bilirubin, Total 1.5 mg/dL (0.2-1.0); CO2 23.4 mmol/L (21.0-32.0); CREATININE 1.06 mg/dL (0.70-1.30); Calcium 9.5 mg/dL (8.5-10.1); Chloride 102 mmol/L (98-107); Glucose 176 mg/dL (70-100); Potassium 4.1 mmol/L (3.5-5.1); Sodium 140 mmol/L (136-145)
== END 2019-03-03 01:57 ==
PROVIDERS: PCP Emergency Medicine; Visit Provider Emergency Medicine
DX: E11.9 Type 2 diabetes mellitus without complications (principal); D69.6 Thrombocytopenia, unspecified
CPT/HCPCS: 36415; 80053; 83036

== ENCOUNTER 2019-03-16 01:14 | Outpatient (CLI) | payer MEDICARE, OTHER, SELFPAY ==
[2019-03-16 11:07] LABS: ALT 40 U/L (12-78); AST 27 U/L (15-37); Albumin 4.1 g/dL (3.4-5.0); Alkaline Phosphatase 159 U/L (46-116); Anion Gap 10.3 mmol/L (3-11); BUN 18 mg/dL (7-18); Bilirubin, Total 1.8 mg/dL (0.2-1.0); CO2 29.7 mmol/L (21.0-32.0); Calcium 9.9 mg/dL (8.5-10.1); Chloride 102 mmol/L (98-107); Glucose 126 mg/dL (70-100); Potassium 4.1 mmol/L (3.5-5.1); Sodium 142 mmol/L (136-145); Total Protein 7.1 g/dL (6.4-8.2)
== END 2019-03-16 01:34 ==
PROVIDERS: PCP Emergency Medicine; Visit Provider Emergency Medicine
DX: D69.6 Thrombocytopenia, unspecified (principal)
CPT/HCPCS: 36415; 80053

== ENCOUNTER 2019-03-23 02:49 | Outpatient (CLI) | payer MEDICARE, OTHER, SELFPAY ==
[2019-03-23 13:21] LABS: ALT 34 U/L (12-78); AST 28 U/L (15-37); Albumin 3.9 g/dL (3.4-5.0); Alkaline Phosphatase 154 U/L (46-116); Anion Gap 11.4 mmol/L (3-11); BUN 17 mg/dL (7-18); Bilirubin, Total 1.5 mg/dL (0.2-1.0); CO2 26.6 mmol/L (21.0-32.0); CREATININE 1.03 mg/dL (0.70-1.30); Calcium 9.2 mg/dL (8.5-10.1); Chloride 103 mmol/L (98-107); Glucose 104 mg/dL (70-100); Potassium 4.2 mmol/L (3.5-5.1); Sodium 141 mmol/L (136-145); Total Protein 6.8 g/dL (6.4-8.2)
== END 2019-03-23 03:09 ==
PROVIDERS: PCP Emergency Medicine; Visit Provider Internal Medicine Gastroenterology
DX: D69.6 Thrombocytopenia, unspecified (principal)
CPT/HCPCS: 36415; 80053

== ENCOUNTER 2019-04-06 02:03 | Outpatient (CLI) | payer MEDICARE, OTHER, SELFPAY ==
[2019-04-06 10:58] LABS: ALT 32 U/L (12-78); AST 25 U/L (15-37); Alkaline Phosphatase 145 U/L (46-116); Anion Gap 12.5 mmol/L (3-11); BUN 19 mg/dL (7-18); Bilirubin, Total 1.3 mg/dL (0.2-1.0); CO2 25.5 mmol/L (21.0-32.0); CREATININE 1.04 mg/dL (0.70-1.30); Calcium 9.4 mg/dL (8.5-10.1); Chloride 102 mmol/L (98-107); Glucose 179 mg/dL (70-100); Potassium 3.8 mmol/L (3.5-5.1); Sodium 140 mmol/L (136-145)
== END 2019-04-06 02:23 ==
PROVIDERS: PCP Emergency Medicine; Referring Provider Internal Medicine Gastroenterology; Visit Provider Emergency Medicine
DX: D69.6 Thrombocytopenia, unspecified (principal)
CPT/HCPCS: 36415; 80053

== ENCOUNTER 2019-04-27 02:30 | Outpatient (CLI) | payer MEDICARE, OTHER, SELFPAY ==
[2019-04-27 17:11] LABS: ALT 33 U/L (12-78); AST 23 U/L (15-37); Albumin 4.1 g/dL (3.4-5.0); Alkaline Phosphatase 135 U/L (46-116); Anion Gap 14.1 mmol/L (3-11); BUN 17 mg/dL (7-18); Bilirubin, Total 1.9 mg/dL (0.2-1.0); CO2 23.9 mmol/L (21.0-32.0); CREATININE 0.91 mg/dL (0.70-1.30); Calcium 9.6 mg/dL (8.5-10.1); Chloride 105 mmol/L (98-107); Glucose 99 mg/dL (70-100); Potassium 4.1 mmol/L (3.5-5.1); Sodium 143 mmol/L (136-145); Total Protein 7.1 g/dL (6.4-8.2)
== END 2019-04-27 02:50 ==
PROVIDERS: PCP Emergency Medicine; Visit Provider Emergency Medicine
DX: D69.6 Thrombocytopenia, unspecified (principal)
CPT/HCPCS: 80053

== ENCOUNTER 2019-05-18 11:15 | Outpatient (CLI) | payer MEDICARE, OTHER, SELFPAY ==
[2019-05-18 13:18] LABS: Bilirubin Negative (Negative); Blood Negative (Negative); Clarity Clear (Clear); Glucose 500 mg/dL (Negative); Ketones Negative (Negative); Leukocyte Esterase Negative (Negative); Nitrite Negative (Negative); Urobilinogen 0.2 EU/dL (Up TO 0.2); pH 5.5 (5-8)
[2019-05-18 13:22] LABS: Hemoglobin A1C 6.7 % (4.5-6.2)
[2019-05-18 13:58] LABS: ALT 26 U/L (12-78); AST 17 U/L (15-37); Albumin 4.1 g/dL (3.4-5.0); Alkaline Phosphatase 129 U/L (46-116); Anion Gap 11.3 mmol/L (3-11); BUN 21 mg/dL (7-18); Bilirubin, Total 1.3 mg/dL (0.2-1.0); CO2 24.7 mmol/L (21.0-32.0); CREATININE 0.92 mg/dL (0.70-1.30); Calcium 9.4 mg/dL (8.5-10.1); Chloride 104 mmol/L (98-107); Glucose 124 mg/dL (70-100); Potassium 4.2 mmol/L (3.5-5.1); Sodium 140 mmol/L (136-145); Total Protein 6.9 g/dL (6.4-8.2)
[2019-05-19 10:24] LABS: PSA, Diagnostic 0.6 ng/ml (0-6.5)
== END 2019-05-18 11:35 ==
PROVIDERS: PCP Emergency Medicine; Visit Provider Emergency Medicine
DX: E11.9 Type 2 diabetes mellitus without complications (principal); R30.0 Dysuria; N40.0 Benign prostatic hyperplasia without lower urinary tract symptoms; D69.6 Thrombocytopenia, unspecified
CPT/HCPCS: 36415; 80053; 81003; 83036; 84153

== ENCOUNTER 2019-06-19 08:57 | Outpatient (CLI) | payer MEDICARE, OTHER, SELFPAY ==
[2019-06-19 16:14] LABS: ALT 26 U/L (12-78); AST 16 U/L (15-37); Albumin 4.3 g/dL (3.4-5.0); Alkaline Phosphatase 136 U/L (46-116); Anion Gap 12.9 mmol/L (3-11); BUN 15 mg/dL (7-18); Bilirubin, Total 1.4 mg/dL (0.2-1.0); CO2 25.1 mmol/L (21.0-32.0); CREATININE 0.99 mg/dL (0.70-1.30); Calcium 9.6 mg/dL (8.5-10.1); Chloride 103 mmol/L (98-107); Glucose 85 mg/dL (70-100); Potassium 4.2 mmol/L (3.5-5.1); Sodium 141 mmol/L (136-145); Total Protein 7.4 g/dL (6.4-8.2)
== END 2019-06-19 09:17 ==
PROVIDERS: PCP Emergency Medicine; Visit Provider Emergency Medicine
DX: D69.6 Thrombocytopenia, unspecified (principal)
CPT/HCPCS: 36415; 80053

== ENCOUNTER 2019-08-03 12:41 | Outpatient (CLI) | payer MEDICARE, OTHER, SELFPAY ==
[2019-08-03 15:11] LABS: ALT 35 U/L (16-63); AST 22 U/L (15-37); Albumin 4.2 g/dL (3.4-5.0); Alkaline Phosphatase 134 U/L (46-116); Anion Gap 14.8 mmol/L (3-11); BUN 20 mg/dL (7-18); Bilirubin, Total 1.4 mg/dL (0.2-1.0); CO2 23.2 mmol/L (21.0-32.0); CREATININE 1.08 mg/dL (0.70-1.30); Calcium 9.1 mg/dL (8.5-10.1); Chloride 103 mmol/L (98-107); Glucose 117 mg/dL (70-100); Potassium 4.3 mmol/L (3.5-5.1); Sodium 141 mmol/L (136-145); Total Protein 7.2 g/dL (6.4-8.2)
== END 2019-08-03 13:01 ==
PROVIDERS: PCP Emergency Medicine; Visit Provider Emergency Medicine
DX: D69.6 Thrombocytopenia, unspecified (principal)
CPT/HCPCS: 36415; 80053

== ENCOUNTER 2019-08-31 12:56 | Outpatient (CLI) | payer MEDICARE, OTHER, SELFPAY ==
[2019-08-31 14:09] LABS: ALT 34 U/L (16-63); AST 25 U/L (15-37); Albumin 4.3 g/dL (3.4-5.0); Alkaline Phosphatase 130 U/L (46-116); Anion Gap 9.6 mmol/L (3-11); BUN 9 mg/dL (7-18); Bilirubin, Total 1.4 mg/dL (0.2-1.0); CO2 27.4 mmol/L (21.0-32.0); CREATININE 1.02 mg/dL (0.70-1.30); Calcium 9.8 mg/dL (8.5-10.1); Chloride 103 mmol/L (98-107); Glucose 103 mg/dL (70-100); Potassium 4.3 mmol/L (3.5-5.1); Sodium 140 mmol/L (136-145); Total Protein 7.3 g/dL (6.4-8.2)
== END 2019-08-31 13:16 ==
PROVIDERS: PCP Emergency Medicine; Visit Provider Emergency Medicine
DX: D69.6 Thrombocytopenia, unspecified (principal)
CPT/HCPCS: 36415; 80053

== ENCOUNTER 2019-09-14 01:34 | Outpatient (CLI) | payer MEDICARE, OTHER, SELFPAY ==
[2019-09-14 10:22] LABS: ALT 28 U/L (16-63); AST 21 U/L (15-37); Albumin 4.3 g/dL (3.4-5.0); Alkaline Phosphatase 114 U/L (46-116); Anion Gap 10.7 mmol/L (3-11); BUN 16 mg/dL (7-18); Bilirubin, Total 1.9 mg/dL (0.2-1.0); CO2 28.3 mmol/L (21.0-32.0); CREATININE 0.96 mg/dL (0.70-1.30); Calcium 9.5 mg/dL (8.5-10.1); Chloride 104 mmol/L (98-107); Glucose 106 mg/dL (70-100); Potassium 4.4 mmol/L (3.5-5.1); Sodium 143 mmol/L (136-145); Total Protein 7.2 g/dL (6.4-8.2)
== END 2019-09-14 01:54 ==
PROVIDERS: PCP Emergency Medicine; Visit Provider Emergency Medicine
DX: D69.6 Thrombocytopenia, unspecified (principal)
CPT/HCPCS: 36415; 80053

== ENCOUNTER 2019-10-05 01:11 | Outpatient (CLI) | payer MEDICARE, OTHER, SELFPAY ==
[2019-10-05 15:26] LABS: ALT 33 U/L (16-63); AST 23 U/L (15-37); Albumin 4.5 g/dL (3.4-5.0); Alkaline Phosphatase 113 U/L (46-116); Anion Gap 10.8 mmol/L (3-11); BUN 18 mg/dL (7-18); Bilirubin, Total 1.9 mg/dL (0.2-1.0); CO2 29.2 mmol/L (21.0-32.0); CREATININE 0.97 mg/dL (0.70-1.30); Chloride 104 mmol/L (98-107); Glucose 135 mg/dL (74-106); Potassium 4.1 mmol/L (3.5-5.1); Sodium 144 mmol/L (136-145); Total Protein 7.6 g/dL (6.4-8.2)
[2019-10-05 16:08] LABS: Bilirubin, Direct 0.34 mg/dL (0.00-0.20)
== END 2019-10-05 01:31 ==
PROVIDERS: Internal Medicine Gastroenterology; PCP Emergency Medicine; Visit Provider Emergency Medicine
DX: K74.60 Unspecified cirrhosis of liver (principal); K75.4 Autoimmune hepatitis; R17 Unspecified jaundice; E80.7 Disorder of bilirubin metabolism, unspecified; D69.6 Thrombocytopenia, unspecified
CPT/HCPCS: 36415; 80053; 82248

== ENCOUNTER 2019-11-10 10:31 | Outpatient (CLI) | payer MEDICARE, OTHER, SELFPAY ==
[2019-11-10 12:57] LABS: ALT 26 U/L (16-63); AST 20 U/L (15-37); Alkaline Phosphatase 113 U/L (46-116); Anion Gap 11.9 mmol/L (3-11); BUN 18 mg/dL (7-18); Bilirubin, Total 0.9 mg/dL (0.2-1.0); CO2 27.1 mmol/L (21.0-32.0); CREATININE 0.99 mg/dL (0.70-1.30); Calcium 9.2 mg/dL (8.5-10.1); Chloride 104 mmol/L (98-107); Glucose 164 mg/dL (74-106); Potassium 4.5 mmol/L (3.5-5.1); Sodium 143 mmol/L (136-145)
[2019-11-10 14:48] LABS: Bilirubin, Direct 0.22 mg/dL (0.00-0.20)
== END 2019-11-10 10:51 ==
PROVIDERS: Internal Medicine Gastroenterology; PCP Emergency Medicine; Visit Provider Emergency Medicine
DX: D69.6 Thrombocytopenia, unspecified (principal); K74.60 Unspecified cirrhosis of liver; K75.4 Autoimmune hepatitis; R17 Unspecified jaundice
CPT/HCPCS: 36415; 80053; 82248

== ENCOUNTER 2019-12-07 10:17 | Outpatient (CLI) | payer MEDICARE, OTHER, SELFPAY ==
[2019-12-07 16:51] LABS: ALT 31 U/L (16-63); AST 24 U/L (15-37); Albumin 4.4 g/dL (3.4-5.0); Alkaline Phosphatase 109 U/L (46-116); Anion Gap 10.4 mmol/L (3-11); BUN 17 mg/dL (7-18); Bilirubin, Total 1.6 mg/dL (0.2-1.0); CO2 27.6 mmol/L (21.0-32.0); CREATININE 0.97 mg/dL (0.70-1.30); Calcium 9.1 mg/dL (8.5-10.1); Chloride 104 mmol/L (98-107); Glucose 82 mg/dL (74-106); Sodium 142 mmol/L (136-145); Total Protein 7.4 g/dL (6.4-8.2)
== END 2019-12-07 10:37 ==
PROVIDERS: PCP Emergency Medicine; Visit Provider Emergency Medicine
DX: D69.6 Thrombocytopenia, unspecified (principal)
CPT/HCPCS: 36415; 80053

== ENCOUNTER 2020-01-04 08:10 | Outpatient (CLI) | payer MEDICARE, OTHER, SELFPAY ==
[2020-01-04 16:46] LABS: ALT 28 U/L (16-63); AST 23 U/L (15-37); Albumin 4.6 g/dL (3.4-5.0); Alkaline Phosphatase 114 U/L (46-116); Anion Gap 12.4 mmol/L (3-11); BUN 21 mg/dL (7-18); Bilirubin, Total 2.2 mg/dL (0.2-1.0); CO2 26.6 mmol/L (21.0-32.0); CREATININE 0.87 mg/dL (0.70-1.30); Calcium 9.5 mg/dL (8.5-10.1); Chloride 101 mmol/L (98-107); Glucose 82 mg/dL (74-106); Potassium 4.2 mmol/L (3.5-5.1); Sodium 140 mmol/L (136-145); Total Protein 7.4 g/dL (6.4-8.2)
== END 2020-01-04 08:30 ==
PROVIDERS: PCP Emergency Medicine; Visit Provider Emergency Medicine
DX: D69.6 Thrombocytopenia, unspecified (principal)
CPT/HCPCS: 36415; 80053

== ENCOUNTER 2020-01-12 08:42 | Outpatient (CLI) | payer MEDICARE, OTHER, SELFPAY ==
[2020-01-12 16:15] LABS: Absolute Basophil Count 0.01 k/cumm (0.0-0.2); Absolute Eosinophil Count 0.13 k/cumm (0.0-0.7); Absolute Lymphocyte Count 0.73 k/cumm (1.2-3.4); Absolute Monocyte Count 0.49 k/cumm (0.11-0.7); Absolute Neutrophil Count 4.17 k/cumm (1.2-6.7); Basophils % 0.2; Eosinophils % 2.4; HGB 15.4 g/dL (13.5-17.5); Lymphocytes % 13.2; Mean Corp. HGB Concentration 32.8 g/dL (32.0-36.0); Mean Corpuscular Hemoglobin 28.2 pg (27.0-33.0); Mean Corpuscular Volume 85.9 fL (80-95); Mean Platelet Volume 9.8 fL (8.0-11.0); Monocytes % 8.9; Neutrophils % 75.3; Platelet Count 134 x1000/uL (130-400); RBC 5.47 m/cumm (4.50-6.00); Reticulocyte 1.1 % (0.5-2.4); White Blood Cell Count 5.53 k/cumm (4.4-10.8)
[2020-01-12 18:09] LABS: ALT 36 U/L (16-63); AST 32 U/L (15-37); Albumin 4.3 g/dL (3.4-5.0); Alkaline Phosphatase 111 U/L (46-116); Anion Gap 12.9 mmol/L (3-11); BUN 20 mg/dL (7-18); Bilirubin, Direct 0.29 mg/dL (0.00-0.20); Bilirubin, Total 1.3 mg/dL (0.2-1.0); CO2 26.1 mmol/L (21.0-32.0); CREATININE 0.97 mg/dL (0.70-1.30); Calcium 9.2 mg/dL (8.5-10.1); Chloride 105 mmol/L (98-107); Glucose 91 mg/dL (74-106); LDH 175 U/L (85-227); Potassium 4.4 mmol/L (3.5-5.1); Sodium 144 mmol/L (136-145); Total Protein 7.2 g/dL (6.4-8.2)
[2020-01-13 12:07] LABS: Haptoglobin 143 mg/dL (32-197)
== END 2020-01-12 09:02 ==
PROVIDERS: Internal Medicine Gastroenterology; PCP Emergency Medicine; Visit Provider Emergency Medicine
DX: K75.4 Autoimmune hepatitis (principal); D69.6 Thrombocytopenia, unspecified
CPT/HCPCS: 36415; 80053; 80076; 83010; 83615; 85025; 85045

== ENCOUNTER 2020-03-17 09:38 | Outpatient (CLI) | payer MEDICARE, OTHER, SELFPAY ==
[2020-03-18 15:32] LABS: COVID-19 RT-PCR Result NEGATIVE (Negative)
== END 2020-03-17 09:58 ==
PROVIDERS: PCP Emergency Medicine; Visit Provider Emergency Medicine
DX: R05 Cough (principal)
CPT/HCPCS: U0003

== ENCOUNTER 2020-03-23 01:07 | Outpatient (CLI) | payer MEDICARE, OTHER, SELFPAY ==
[2020-03-23 10:23] LABS: Abs Immature Grans 0.01 k/cumm (0.0-0.09); Absolute Eosinophil Count 0.12 k/cumm (0.0-0.7); Absolute Lymphocyte Count 0.77 k/cumm (1.2-3.4); Absolute Monocyte Count 0.33 k/cumm (0.11-0.7); Absolute Neutrophil Count 2.65 k/cumm (1.2-6.7); Eosinophils % 3.1; HCT 45.6 % (40.0-50.0); HGB 14.7 g/dL (13.5-17.5); Immature Grans % 0.3 %; Lymphocytes % 19.8; Mean Corp. HGB Concentration 32.2 g/dL (32.0-36.0); Mean Corpuscular Volume 86.9 fL (80-95); Monocytes % 8.5; Neutrophils % 68.3; Platelet Count 148 x1000/uL (130-400); RBC 5.25 m/cumm (4.50-6.00); RBC Distribution Width 14.1 % (11.8-14.1); White Blood Cell Count 3.88 k/cumm (4.4-10.8)
[2020-03-23 10:27] LABS: Prothrombin Time 10.2 sec (9.3-11.0)
[2020-03-23 11:10] LABS: ALT 34 U/L (16-63); AST 16 U/L (15-37); Albumin 4.2 g/dL (3.4-5.0); Alkaline Phosphatase 107 U/L (46-116); Anion Gap 7.5 mmol/L (3-11); BUN 22 mg/dL (7-18); Bilirubin, Total 1.5 mg/dL (0.2-1.0); CO2 30.5 mmol/L (21.0-32.0); CREATININE 1.08 mg/dL (0.70-1.30); Calcium 9.3 mg/dL (8.5-10.1); Calculated LDL 201 mg/dL (<100); Chloride 103 mmol/L (98-107); Cholesterol 300 mg/dL (<200); Glucose 120 mg/dL (74-106); HDL Cholesterol 51 mg/dL (40-60); Potassium 4.1 mmol/L (3.5-5.1); Sodium 141 mmol/L (136-145); Total Protein 7.2 g/dL (6.4-8.2); Triglyceride 240 mg/dL (<150)
[2020-03-23 11:18] LABS: Bilirubin, Direct 0.26 mg/dL (0.00-0.20)
== END 2020-03-23 01:27 ==
PROVIDERS: PCP Emergency Medicine; Visit Provider Internal Medicine Gastroenterology
DX: I25.10 Atherosclerotic heart disease of native coronary artery without angina pectoris (principal); K75.4 Autoimmune hepatitis; K74.60 Unspecified cirrhosis of liver
CPT/HCPCS: 36415; 80053; 80061; 80076; 85025; 85610

== ENCOUNTER 2020-04-19 00:27 | Outpatient (CLI) | payer MEDICARE, OTHER, SELFPAY ==
--- NOTE | 2020-04-19 | DI.US_ITS ---
EXAM: US ABDOMEN CLINICAL HISTORY: CIRRHOSIS, SCREENING FOR HCC TECHNIQUE: Ultrasound abdomen performed using standard protocol. COMPARISON: CT ABD PELVIS WITH CONTRAST from 03/08/2017 CT ABD PELVIS WITH CONTRAST from 04/17/2017 US ABDOMEN ULTRASOUND (P) from 04/18/2017 FINDINGS: LIVER: The liver again shows a nodular contour and is mildly enlarged. No focal liver lesions are se en.. GALLBLADDER: No evidence of cholelithiasis. No evidence of wall thickening. No pericholecystic fluid identified. KIDNEYS: Kidneys are symmetric in size. No evidence of renal calculi. No evidence of hydronephrosis. No renal mass or cyst identified. BILIARY SYSTEM: No intrahepatic or extrahepatic biliary ductal dilation. LUGO'S SIGN: Negative. PANCREAS: Normal where visualized. SPLEEN: Not enlarged. ABDOMINAL AORTA AND IVC: Visualized portions normal caliber. ASCITES: None seen. IMPRESSION: Stable cirrhotic appearing liver. No evidence of mass. DATA REPOSITORY:
== END 2020-04-19 00:47 ==
PROVIDERS: PCP Emergency Medicine; Visit Provider Internal Medicine Gastroenterology
DX: K74.69 Other cirrhosis of liver (principal); K76.89 Other specified diseases of liver
CPT/HCPCS: 76700

== ENCOUNTER 2020-05-16 01:40 | Outpatient (CLI) | payer MEDICARE, OTHER, SELFPAY ==
[2020-05-16 10:11] LABS: Abs Immature Grans 0.01 k/cumm (0.0-0.09); Absolute Basophil Count 0.01 k/cumm (0.0-0.2); Absolute Eosinophil Count 0.12 k/cumm (0.0-0.7); Absolute Lymphocyte Count 0.75 k/cumm (1.2-3.4); Absolute Monocyte Count 0.39 k/cumm (0.11-0.7); Absolute Neutrophil Count 3.79 k/cumm (1.2-6.7); Basophils % 0.2; Eosinophils % 2.4; HCT 44.3 % (40.0-50.0); HGB 14.4 g/dL (13.5-17.5); Immature Grans % 0.2 %; Lymphocytes % 14.8; Mean Corp. HGB Concentration 32.5 g/dL (32.0-36.0); Mean Corpuscular Hemoglobin 28.2 pg (27.0-33.0); Mean Corpuscular Volume 86.7 fL (80-95); Mean Platelet Volume 10.4 fL (8.0-11.0); Monocytes % 7.7; Neutrophils % 74.7; Platelet Count 127 x1000/uL (130-400); RBC 5.11 m/cumm (4.50-6.00); RBC Distribution Width 14.4 % (11.8-14.1); White Blood Cell Count 5.07 k/cumm (4.4-10.8)
[2020-05-16 10:30] LABS: Hemoglobin A1C 6.3 % (3.8-5.6)
[2020-05-16 10:54] LABS: ALT 29 U/L (16-63); AST 19 U/L (15-37); Albumin 4.2 g/dL (3.4-5.0); Alkaline Phosphatase 97 U/L (46-116); Anion Gap 8.6 mmol/L (3-11); BUN 15 mg/dL (7-18); Bilirubin, Total 1.4 mg/dL (0.2-1.0); CO2 27.4 mmol/L (21.0-32.0); CREATININE 0.95 mg/dL (0.70-1.30); Calcium 9.1 mg/dL (8.5-10.1); Calculated LDL 81 mg/dL (<100); Chloride 105 mmol/L (98-107); Cholesterol 171 mg/dL (<200); Glucose 109 mg/dL (74-106); HDL Cholesterol 50 mg/dL (40-60); Potassium 4.6 mmol/L (3.5-5.1); Sodium 141 mmol/L (136-145); Total Protein 6.8 g/dL (6.4-8.2); Triglyceride 202 mg/dL (<150)
[2020-05-16 11:18] LABS: Bilirubin, Direct 0.27 mg/dL (0.00-0.20)
== END 2020-05-16 02:00 ==
PROVIDERS: PCP Emergency Medicine; Visit Provider Emergency Medicine
DX: D69.3 Immune thrombocytopenic purpura (principal); K75.4 Autoimmune hepatitis; E11.9 Type 2 diabetes mellitus without complications; I25.118 Atherosclerotic heart disease of native coronary artery with other forms of angina pectoris
CPT/HCPCS: 36415; 80053; 80061; 80076; 83036; 85025

== ENCOUNTER 2020-08-04 05:31 | Outpatient (CLI) | payer MEDICARE, OTHER, SELFPAY ==
[2020-08-04 15:21] LABS: Abs Immature Grans 0.01 10^3/uL (0.0-0.06); Absolute Basophil Count 0.02 10^3/uL (0.0-0.2); Absolute Eosinophil Count 0.09 10^3/uL (0.0-0.7); Absolute Lymphocyte Count 0.76 10^3/uL (1.2-3.4); Absolute Monocyte Count 0.37 10^3/uL (0.1-0.8); Absolute Neutrophil Count 3.56 10^3/uL (1.2-6.7); Basophils % 0.4; Eosinophils % 1.9; HCT 45.8 % (40.0-50.0); HGB 14.8 g/dL (13.5-17.5); Immature Grans % 0.2; Lymphocytes % 15.8; MCH 28.1 pg (27.0-33.0); MCHC 32.3 % (32.0-36.0); MCV 87.1 fL (80-95); MPV 10.4 fL (8.0-11.0); Monocytes % 7.7; Nucleated RBC 0 %; Platelet Count 142 10^3/uL (130-400); RBC 5.26 10^6/uL (4.36-5.78); RDW 13.7 % (11.8-14.1); RDW-SD 42.8 fL; WBC 4.81 10^3/uL (4.4-10.8)
[2020-08-04 15:49] LABS: INR 1.1 (0.9-1.1); Prothrombin Time 10.7 sec (9.3-11.0)
[2020-08-04 16:07] LABS: ALT 29 U/L (16-63); AST 25 U/L (15-37); Albumin 4.3 g/dL (3.4-5.0); Alkaline Phosphatase 102 U/L (46-116); BUN 15 mg/dL (7-18); Bilirubin, Total 1.5 mg/dL (0.2-1.0); CREATININE 0.89 mg/dL (0.70-1.30); Chloride 105 mmol/L (98-107); Glucose 99 mg/dL (74-106); Potassium 4.1 mmol/L (3.5-5.1); Sodium 141 mmol/L (136-145); Total Protein 7.1 g/dL (6.4-8.2)
[2020-08-04 16:14] LABS: Hemoglobin A1C 6.3 % (<5.7)
[2020-08-04 16:20] LABS: Bilirubin, Direct 0.32 mg/dL (0.00-0.20)
== END 2020-08-04 05:51 ==
PROVIDERS: PCP Emergency Medicine; Visit Provider Emergency Medicine
DX: E11.9 Type 2 diabetes mellitus without complications (principal); K74.60 Unspecified cirrhosis of liver
CPT/HCPCS: 36415; 80053; 80076; 82248; 83036; 85025; 85610

== ENCOUNTER 2020-08-26 07:33 | Outpatient (CLI) | payer MEDICARE, OTHER, SELFPAY ==
[2020-08-29 03:47] LABS: Patient Race White; SARS-CoV-2 RNA Undetected (Undetected); SARS-CoV-2 Specimen Source Nasal
== END 2020-08-26 07:53 ==
PROVIDERS: PCP Emergency Medicine; Visit Provider Emergency Medicine
DX: Z11.59 Encounter for screening for other viral diseases (principal)
CPT/HCPCS: U0003

== ENCOUNTER 2020-11-18 04:14 | Outpatient (CLI) | payer MEDICARE, OTHER, SELFPAY ==
[2020-11-18 12:39] LABS: HCT 46.5 % (40.0-50.0); MCH 28.1 pg (27.0-33.0); MCHC 32.3 % (32.0-36.0); MCV 87.2 fL (80-95); MPV 10.6 fL (8.0-11.0); RBC 5.33 10^6/uL (4.36-5.78); RDW 13.4 % (11.8-14.1); RDW-SD 42.5 fL; WBC 4.48 10^3/uL (4.4-10.8)
[2020-11-18 12:40] LABS: Hemoglobin A1C 6.3 % (<5.7)
[2020-11-18 13:22] LABS: ALT 37 U/L (16-63); AST 26 U/L (15-37); Albumin 4.4 g/dL (3.4-5.0); Alkaline Phosphatase 102 U/L (46-116); Anion Gap 8.8 mmol/L (3-11); BUN 18 mg/dL (7-18); Bilirubin, Total 1.5 mg/dL (0.2-1.0); CO2 28.2 mmol/L (21.0-32.0); CREATININE 1.09 mg/dL (0.70-1.30); Calcium 9.5 mg/dL (8.5-10.1); Chloride 105 mmol/L (98-107); Glucose 143 mg/dL (74-106); Potassium 4.3 mmol/L (3.5-5.1); Sodium 142 mmol/L (136-145); Total Protein 7.2 g/dL (6.4-8.2)
[2020-11-18 13:23] LABS: ALT 38 U/L (16-63); AST 26 U/L (15-37); Albumin 4.3 g/dL (3.4-5.0); Alkaline Phosphatase 104 U/L (46-116); Bilirubin, Direct 0.27 mg/dL (0.00-0.20); Bilirubin, Total 1.5 mg/dL (0.2-1.0); Platelet Count 131 10^3/uL (130-400); Total Protein 7.3 g/dL (6.4-8.2)
== END 2020-11-18 04:34 ==
PROVIDERS: PCP Emergency Medicine; Visit Provider Emergency Medicine
DX: E11.9 Type 2 diabetes mellitus without complications (principal); K74.60 Unspecified cirrhosis of liver; I48.91 Unspecified atrial fibrillation; Z79.01 Long term (current) use of anticoagulants
CPT/HCPCS: 36415; 80053; 80076; 85027; 83036

== ENCOUNTER 2020-12-26 01:58 | Outpatient (CLI) | payer MEDICARE, OTHER, SELFPAY ==
--- NOTE | 2020-12-26 | DI.US_ITS ---
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 COMPARISON: US US ABDOMEN from 04/19/2020 FINDINGS: There is no ascites evident. LIVER: Liver is again noted be hyperechoic and enlarged appears somewhat cirrhotic. There are no new discrete focal hepatic lesions identified on these images. GALLBLADDER/BILIARY: There are no gallstones. No gallbladder wall edema nor pericholecystic fluid. The common hepatic duct isnot dilated, measuring 3-4mm at the level of vicenta hepatis. PANCREAS: There is no evidence of pancreatic mass nor dilatation of the pancreatic duct. SPLEEN: The spleen is not enlarged and there are no intrasplenic lesions evident. KIDNEYS:Kidneys exhibit normal size with no evidence of solid mass, calculus, nor hydronephrosis. No cortical cysts evident. ABDOMINAL AORTA: There is no evidence of abdominal aortic aneurysm. IVC: Normal diameter where visualized. IMPRESSION: 1. No evidence of cholelithiasis nor dilatation of the biliary tree. 2. Cirrhotic appearing liver and mild hepatomegaly is again noted. There are no new focal hepatic l esions identified. 3. There is no ascites. DATA REPOSITORY:
== END 2020-12-26 01:59 ==
LOC: DI 01:59
PROVIDERS: PCP Family Medicine; Visit Provider Internal Medicine Gastroenterology
DX: K75.4 Autoimmune hepatitis (principal); K74.60 Unspecified cirrhosis of liver; R16.0 Hepatomegaly, not elsewhere classified
CPT/HCPCS: 76700

== ENCOUNTER 2020-12-26 03:31 | Outpatient (CLI) | payer MEDICARE, OTHER, SELFPAY ==
--- NOTE | 2020-12-26 10:00 | RT.EKG_ITS ---
APPROVED REPORT Exam: Resting ECG Patient Location: O HR:72 bpm ECG Measurements Heart Rate 72 AXIS SC 177 P -14 QRSd 87 QRS 14 QT 421 T 23 QTc 460 Conclusion Sinus rhythm...normal P axis, V-rate 60- 99
== END 2020-12-26 03:32 | disposition home or self-care (01) ==
LOC: RT 03:31
PROVIDERS: PCP Family Medicine; Visit Provider Physician Assistant Medical
DX: Z79.899 Other long term (current) drug therapy (principal); K75.4 Autoimmune hepatitis; K74.60 Unspecified cirrhosis of liver; R16.0 Hepatomegaly, not elsewhere classified
CPT/HCPCS: 76700; 93005; 93010

== ENCOUNTER 2021-01-03 03:11 | Outpatient (CLI) | payer MEDICARE, OTHER, SELFPAY ==
[2021-01-03 13:01] LABS: Abs Immature Grans 0.01 10^3/uL (0.0-0.06); Absolute Basophil Count 0.02 10^3/uL (0.0-0.2); Absolute Lymphocyte Count 0.76 10^3/uL (1.2-3.4); Absolute Monocyte Count 0.42 10^3/uL (0.1-0.8); Absolute Neutrophil Count 3.73 10^3/uL (1.2-6.7); Basophils % 0.4; HCT 47.5 % (40.0-50.0); HGB 15.1 g/dL (13.5-17.5); Immature Grans % 0.2; Lymphocytes % 15.1; MCH 27.9 pg (27.0-33.0); MCHC 31.8 % (32.0-36.0); MCV 87.8 fL (80-95); MPV 10.2 fL (8.0-11.0); Monocytes % 8.3; Nucleated RBC 0 %; RBC 5.41 10^6/uL (4.36-5.78); RDW 13.3 % (11.8-14.1); RDW-SD 42.5 fL; WBC 5.04 10^3/uL (4.4-10.8)
[2021-01-03 13:40] LABS: Diff Comment PLT Morph Reviewed; Platelet Count 138 10^3/uL (130-400); RBC Morphology Normal
[2021-01-03 14:10] LABS: ALT 30 U/L (16-63); AST 19 U/L (15-37); Albumin 4.2 g/dL (3.4-5.0); Alkaline Phosphatase 104 U/L (46-116); Anion Gap 9.1 mmol/L (3-11); BUN 20 mg/dL (7-18); Bilirubin, Direct 0.29 mg/dL (0.00-0.20); Bilirubin, Total 1.7 mg/dL (0.2-1.0); CO2 28.9 mmol/L (21.0-32.0); CREATININE 0.9 mg/dL (0.70-1.30); Calcium 9.6 mg/dL (8.5-10.1); Chloride 103 mmol/L (98-107); Glucose 120 mg/dL (74-106); Potassium 4.3 mmol/L (3.5-5.1); Sodium 141 mmol/L (136-145); Total Protein 7.4 g/dL (6.4-8.2)
[2021-01-03 14:17] LABS: Magnesium 2.2 mg/dL (1.8-2.4)
== END 2021-01-03 03:12 | disposition home or self-care (01) ==
LOC: LBO 03:11
PROVIDERS: Physician Assistant Medical; PCP Family Medicine; Visit Provider Internal Medicine Gastroenterology
DX: K74.60 Unspecified cirrhosis of liver (principal); K75.4 Autoimmune hepatitis; Z79.899 Other long term (current) drug therapy
CPT/HCPCS: 36415; 80053; 80076; 83735; 85025

== ENCOUNTER 2021-02-21 02:38 | Outpatient (CLI) | payer MEDICARE, OTHER, SELFPAY ==
[2021-02-21 13:10] LABS: HCT 46.6 % (40.0-50.0); HGB 14.6 g/dL (13.5-17.5); MCH 27.9 pg (27.0-33.0); MCHC 31.3 % (32.0-36.0); MCV 88.9 fL (80-95); MPV 10.3 fL (8.0-11.0); Platelet Count 137 10^3/uL (130-400); RBC 5.24 10^6/uL (4.36-5.78); RDW 13.5 % (11.8-14.1); RDW-SD 43.6 fL; WBC 3.99 10^3/uL (4.4-10.8)
[2021-02-21 13:33] LABS: COMMENT (LAB VIEW ONLY) 54.48 mg/dL; Microalb ug/mg Crea 27.5 ug/mg Cr
[2021-02-21 13:42] LABS: Hemoglobin A1C 6.6 % (<5.7)
[2021-02-21 13:57] LABS: ALT 29 U/L (16-63); AST 16 U/L (15-37); Albumin 4.2 g/dL (3.4-5.0); Alkaline Phosphatase 97 U/L (46-116); Anion Gap 9.7 mmol/L (3-11); BUN 15 mg/dL (7-18); Bilirubin, Total 1.7 mg/dL (0.2-1.0); CO2 28.3 mmol/L (21.0-32.0); Calcium 8.7 mg/dL (8.5-10.1); Calculated LDL 87 mg/dL (<100); Chloride 106 mmol/L (98-107); Cholesterol 167 mg/dL (<200); Glucose 104 mg/dL (74-106); HDL Cholesterol 51 mg/dL (40-60); Magnesium 2.1 mg/dL (1.8-2.4); Potassium 4.1 mmol/L (3.5-5.1); Sodium 144 mmol/L (136-145); Total Protein 7.1 g/dL (6.4-8.2); Triglyceride 149 mg/dL (<150)
== END 2021-02-21 02:39 | disposition home or self-care (01) ==
LOC: LBO 02:39
PROVIDERS: PCP Family Medicine; Visit Provider Family Medicine
DX: E78.5 Hyperlipidemia, unspecified (principal); E11.9 Type 2 diabetes mellitus without complications; I25.10 Atherosclerotic heart disease of native coronary artery without angina pectoris; I48.91 Unspecified atrial fibrillation; K74.60 Unspecified cirrhosis of liver
CPT/HCPCS: 36415; 80053; 80061; 85027; 82043; 82570; 83036; 83735

== ENCOUNTER 2021-04-11 10:01 | Outpatient (CLI) | payer MEDICARE, OTHER, SELFPAY ==
[2021-04-11 16:32] LABS: Absolute Basophil Count 0.01 10^3/uL (0.0-0.2); Absolute Eosinophil Count 0.07 10^3/uL (0.0-0.7); Absolute Lymphocyte Count 0.66 10^3/uL (1.2-3.4); Absolute Monocyte Count 0.33 10^3/uL (0.1-0.8); Absolute Neutrophil Count 2.48 10^3/uL (1.2-6.7); Basophils % 0.3; HCT 44.3 % (40.0-50.0); HGB 14.1 g/dL (13.5-17.5); Lymphocytes % 18.6; MCHC 31.8 % (32.0-36.0); MCV 88.1 fL (80-95); MPV 10.9 fL (8.0-11.0); Monocytes % 9.3; Neutrophils % 69.8; Nucleated RBC 0 %; Platelet Count 120 10^3/uL (130-400); RBC 5.03 10^6/uL (4.36-5.78); RDW 13.4 % (11.8-14.1); RDW-SD 43.2 fL; WBC 3.55 10^3/uL (4.4-10.8)
[2021-04-11 16:52] LABS: ALT 48 U/L (16-63); AST 32 U/L (15-37); Alkaline Phosphatase 98 U/L (46-116); Anion Gap 8.7 mmol/L (3-11); BUN 13 mg/dL (7-18); Bilirubin, Direct 0.3 mg/dL (0.0-0.2); Bilirubin, Total 1.1 mg/dL (0.2-1.0); CO2 27.3 mmol/L (21.0-32.0); CREATININE 0.9 mg/dL (0.70-1.30); Calcium 8.7 mg/dL (8.5-10.1); Chloride 107 mmol/L (98-107); Glucose 128 mg/dL (74-106); Potassium 4.1 mmol/L (3.5-5.1); Sodium 143 mmol/L (136-145); Total Protein 6.8 g/dL (6.4-8.2)
== END 2021-04-11 10:02 | disposition home or self-care (01) ==
LOC: LBO 10:10
PROVIDERS: PCP Family Medicine; Visit Provider Internal Medicine Gastroenterology
DX: K75.4 Autoimmune hepatitis (principal)
CPT/HCPCS: 36415; 80053; 80076; 85025

== ENCOUNTER 2021-04-17 03:08 | Outpatient (CLI) | payer MEDICARE, OTHER, SELFPAY ==
[2021-04-17 15:12] LABS: ALT 35 U/L (16-63); AST 22 U/L (15-37); Albumin 4.2 g/dL (3.4-5.0); Alkaline Phosphatase 94 U/L (46-116); Bilirubin, Direct 0.3 mg/dL (0.0-0.2); Total Protein 7.2 g/dL (6.4-8.2)
== END 2021-04-17 03:09 | disposition home or self-care (01) ==
LOC: LBO 03:09
PROVIDERS: PCP Family Medicine; Visit Provider Internal Medicine Gastroenterology
DX: K75.4 Autoimmune hepatitis (principal)
CPT/HCPCS: 36415; 80076

== ENCOUNTER 2021-05-01 03:30 | Outpatient (CLI) | payer MEDICARE, OTHER, SELFPAY ==
[2021-05-01 15:15] LABS: ALT 31 U/L (16-63); AST 20 U/L (15-37); Albumin 4.1 g/dL (3.4-5.0); Alkaline Phosphatase 92 U/L (46-116); Bilirubin, Direct 0.4 mg/dL (0.0-0.2); Bilirubin, Total 2.4 mg/dL (0.2-1.0); Total Protein 6.9 g/dL (6.4-8.2)
== END 2021-05-01 03:31 | disposition home or self-care (01) ==
LOC: LBO 03:31
PROVIDERS: PCP Family Medicine; Visit Provider Internal Medicine Gastroenterology
DX: K75.4 Autoimmune hepatitis (principal)
CPT/HCPCS: 36415; 80076

== ENCOUNTER 2021-05-15 03:22 | Outpatient (CLI) | payer MEDICARE, OTHER, SELFPAY ==
[2021-05-15 15:16] LABS: ALT 27 U/L (16-63); AST 17 U/L (15-37); Albumin 4.1 g/dL (3.4-5.0); Alkaline Phosphatase 85 U/L (46-116); Bilirubin, Direct 0.4 mg/dL (0.0-0.2); Total Protein 6.8 g/dL (6.4-8.2)
== END 2021-05-15 03:23 | disposition home or self-care (01) ==
LOC: LBO 03:23
PROVIDERS: PCP Family Medicine; Visit Provider Internal Medicine Gastroenterology
DX: K75.4 Autoimmune hepatitis (principal)
CPT/HCPCS: 36415; 80076

== ENCOUNTER 2021-05-22 03:20 | Outpatient (CLI) | payer MEDICARE, OTHER, SELFPAY ==
[2021-05-22 15:26] LABS: ALT 28 U/L (16-63); AST 18 U/L (15-37); Albumin 4.1 g/dL (3.4-5.0); Alkaline Phosphatase 90 U/L (46-116); Bilirubin, Direct 0.4 mg/dL (0.0-0.2)
== END 2021-05-22 03:21 | disposition home or self-care (01) ==
LOC: LBO 03:20
PROVIDERS: PCP Family Medicine; Visit Provider Internal Medicine Gastroenterology
DX: K75.4 Autoimmune hepatitis (principal)
CPT/HCPCS: 36415; 80076

== ENCOUNTER 2021-05-30 02:35 | Outpatient (CLI) | payer MEDICARE, OTHER, SELFPAY ==
--- NOTE | 2021-05-30 | DI.US_ITS ---
Exam(s) US ABDOMEN LIMITED EXAM: US ABDOMEN LIMITED CLINICAL HISTORY: HEPATITIS,K75.4,HEPATIC CIRRHOSIS,K74.60,SCREEN FOR HCC,ASSESS SPLENOMEGALY TECHNIQUE: Ultrasound abdomen performed using standard protocol. COMPARISON: US US ABDOMEN from 12/26/2020 US US ABDOMEN from 12/26/2020 FINDINGS: ABDOMINAL AORTA AND IVC: Visualized portions normal caliber. PANCREAS: Normal where visualized. LIVER: The liver has a heterogeneous echotexture predominantly hyperechoic suggesting fatty infiltrat ion. The liver has a nodular contour. The liver measures 17.3 cm. Hepatopedal flow in the Portal V ein. GALLBLADDER: No evidence of cholelithiasis. No evidence of wall thickening. No pericholecystic fluid identified. BILIARY SYSTEM: Common bile duct measures < 7 mm. No intrahepatic biliary ductal dilation. LUGO'S SIGN: Negative. KIDNEYS: Kidneys are symmetric in size. No evidence of renal calculi. No evidence of hydronephrosis. No renal mass or cyst identified. SPLEEN: The spleen measures 12.7 cm. ASCITES: None seen. IMPRESSION: 1. Findings of mild hepatomegaly and hepatic cirrhosis. 2. Spleen is at the upper limits of normal in size. DATA REPOSITORY:
== END 2021-05-30 02:55 ==
PROVIDERS: PCP Family Medicine; Visit Provider Internal Medicine Gastroenterology
DX: K75.4 Autoimmune hepatitis (principal); K74.60 Unspecified cirrhosis of liver
CPT/HCPCS: 76705

== ENCOUNTER 2021-06-05 02:40 | Outpatient (CLI) | payer MEDICARE, OTHER, SELFPAY ==
[2021-06-05 16:04] LABS: ALT 32 U/L (16-63); AST 19 U/L (15-37); Alkaline Phosphatase 84 U/L (46-116); Bilirubin, Direct 0.3 mg/dL (0.0-0.2); Bilirubin, Total 1.6 mg/dL (0.2-1.0); Total Protein 6.9 g/dL (6.4-8.2)
== END 2021-06-05 02:41 | disposition home or self-care (01) ==
LOC: LBO 02:40
PROVIDERS: PCP Family Medicine; Visit Provider Internal Medicine Gastroenterology
DX: K75.4 Autoimmune hepatitis (principal)
CPT/HCPCS: 36415; 80076

== ENCOUNTER 2021-06-19 03:09 | Outpatient (CLI) | payer MEDICARE, OTHER, SELFPAY ==
[2021-06-19 14:57] LABS: ALT 31 U/L (16-63); AST 25 U/L (15-37); Alkaline Phosphatase 83 U/L (46-116); Bilirubin, Direct 0.3 mg/dL (0.0-0.2); Bilirubin, Total 1.4 mg/dL (0.2-1.0); Total Protein 6.7 g/dL (6.4-8.2)
== END 2021-06-19 03:10 | disposition home or self-care (01) ==
LOC: LBO 03:09
PROVIDERS: PCP Family Medicine; Visit Provider Internal Medicine Gastroenterology
DX: K75.4 Autoimmune hepatitis (principal)
CPT/HCPCS: 36415; 80076

== ENCOUNTER 2021-06-26 02:45 | Outpatient (CLI) | payer MEDICARE, OTHER, SELFPAY ==
[2021-06-26 15:13] LABS: ALT 30 U/L (16-63); AST 17 U/L (15-37); Alkaline Phosphatase 86 U/L (46-116); Bilirubin, Direct 0.3 mg/dL (0.0-0.2); Bilirubin, Total 1.6 mg/dL (0.2-1.0); Total Protein 6.8 g/dL (6.4-8.2)
== END 2021-06-26 02:46 | disposition home or self-care (01) ==
LOC: LBO 02:45
PROVIDERS: PCP Family Medicine; Visit Provider Internal Medicine Gastroenterology
DX: K75.4 Autoimmune hepatitis (principal)
CPT/HCPCS: 36415; 80076

== ENCOUNTER 2021-07-03 03:35 | Outpatient (CLI) | payer MEDICARE, OTHER, SELFPAY ==
[2021-07-03 16:03] LABS: ALT 31 U/L (16-63); AST 22 U/L (15-37); Albumin 4.1 g/dL (3.4-5.0); Alkaline Phosphatase 101 U/L (46-116); Bilirubin, Direct 0.3 mg/dL (0.0-0.2); Bilirubin, Total 1.7 mg/dL (0.2-1.0)
== END 2021-07-03 03:36 | disposition home or self-care (01) ==
LOC: LBO 03:35
PROVIDERS: PCP Family Medicine; Visit Provider Internal Medicine Gastroenterology
DX: K75.4 Autoimmune hepatitis (principal)
CPT/HCPCS: 36415; 80076

== ENCOUNTER 2021-07-06 10:25 | Outpatient (CLI) | payer MEDICARE, OTHER, SELFPAY ==
[2021-07-06 14:59] LABS: Abs Immature Grans 0.01 10^3/uL (0.0-0.06); Absolute Basophil Count 0.03 10^3/uL (0.0-0.2); Absolute Eosinophil Count 0.45 10^3/uL (0.0-0.7); Absolute Lymphocyte Count 0.92 10^3/uL (1.2-3.4); Absolute Monocyte Count 0.41 10^3/uL (0.1-0.8); Absolute Neutrophil Count 3.38 10^3/uL (1.2-6.7); Basophils % 0.6; Eosinophils % 8.7; HCT 44.9 % (40.0-50.0); HGB 14.3 g/dL (13.5-17.5); Immature Grans % 0.2; Lymphocytes % 17.7; MCHC 31.8 % (32.0-36.0); MCV 87.9 fL (80-95); Monocytes % 7.9; Neutrophils % 64.9; Nucleated RBC 0 %; Platelet Count 158 10^3/uL (130-400); RBC 5.11 10^6/uL (4.36-5.78); RDW 13.6 % (11.8-14.1); RDW-SD 43.7 fL
== END 2021-07-06 10:26 | disposition home or self-care (01) ==
LOC: LBO 10:30
PROVIDERS: Internal Medicine Gastroenterology; PCP Family Medicine; Visit Provider Family Medicine
DX: K75.4 Autoimmune hepatitis (principal)
CPT/HCPCS: 36415; 80076; 85025

== ENCOUNTER 2021-07-11 14:00 | Outpatient (CLI) | payer MEDICARE, OTHER, SELFPAY ==
[2021-07-11 16:18] LABS: Magnesium 2.4 mg/dL (1.8-2.4)
[2021-07-11 16:25] LABS: ALT 37 U/L (16-63); AST 25 U/L (15-37); Albumin 4.3 g/dL (3.4-5.0); Alkaline Phosphatase 92 U/L (46-116); Anion Gap 3.5 mmol/L (3-11); BUN 17 mg/dL (7-18); Bilirubin, Total 2.4 mg/dL (0.2-1.0); CO2 27.5 mmol/L (21.0-32.0); CREATININE 1.1 mg/dL (0.70-1.30); Calcium 9.2 mg/dL (8.5-10.1); Chloride 102 mmol/L (98-107); Glucose 152 mg/dL (74-106); Potassium 3.8 mmol/L (3.5-5.1); Sodium 133 mmol/L (136-145); Total Protein 7.1 g/dL (6.4-8.2)
== END 2021-07-11 14:01 | disposition home or self-care (01) ==
LOC: LBO 14:00
PROVIDERS: PCP Family Medicine; Visit Provider Internal Medicine Gastroenterology
DX: K75.4 Autoimmune hepatitis (principal); I48.0 Paroxysmal atrial fibrillation; Z79.899 Other long term (current) drug therapy
CPT/HCPCS: 36415; 80053; 83735

== ENCOUNTER 2021-08-18 09:14 | Outpatient (CLI) | payer MEDICARE, OTHER, SELFPAY ==
[2021-08-18 14:57] LABS: Abs Immature Grans 0.01 10^3/uL (0.0-0.06); Absolute Basophil Count 0.03 10^3/uL (0.0-0.2); Absolute Eosinophil Count 0.22 10^3/uL (0.0-0.7); Absolute Lymphocyte Count 0.72 10^3/uL (1.2-3.4); Absolute Monocyte Count 0.39 10^3/uL (0.1-0.8); Absolute Neutrophil Count 3.05 10^3/uL (1.2-6.7); Basophils % 0.7; HCT 46.4 % (40.0-50.0); HGB 14.4 g/dL (13.5-17.5); Immature Grans % 0.2; Lymphocytes % 16.3; MCH 27.9 pg (27.0-33.0); MCV 89.9 fL (80-95); MPV 10.3 fL (8.0-11.0); Monocytes % 8.8; Nucleated RBC 0 %; Platelet Count 144 10^3/uL (130-400); RBC 5.16 10^6/uL (4.36-5.78); RDW 13.6 % (11.8-14.1); RDW-SD 45.1 fL; WBC 4.42 10^3/uL (4.4-10.8)
[2021-08-18 16:02] LABS: ALT 32 U/L (16-63); AST 21 U/L (15-37); Albumin 4.1 g/dL (3.4-5.0); Alkaline Phosphatase 95 U/L (46-116); Anion Gap 5.6 mmol/L (3-11); BUN 18 mg/dL (7-18); Bilirubin, Direct 0.3 mg/dL (0.0-0.2); Bilirubin, Total 1.5 mg/dL (0.2-1.0); CO2 32.4 mmol/L (21.0-32.0); Calcium 9.2 mg/dL (8.5-10.1); Chloride 107 mmol/L (98-107); Glucose 112 mg/dL (74-106); Potassium 4.1 mmol/L (3.5-5.1); Sodium 145 mmol/L (136-145); Total Protein 6.9 g/dL (6.4-8.2)
== END 2021-08-18 09:15 | disposition home or self-care (01) ==
LOC: LBO 09:17
PROVIDERS: PCP Family Medicine; Visit Provider Internal Medicine Gastroenterology
DX: K75.4 Autoimmune hepatitis (principal)
CPT/HCPCS: 36415; 80053; 80076; 85025

== ENCOUNTER 2021-09-11 13:47 | Outpatient (CLI) | payer MEDICARE, OTHER, SELFPAY ==
--- NOTE | 2021-09-11 15:45 | RT.EKG_ITS ---
APPROVED REPORT Exam: Resting ECG Reason for Exam: PAF Patient Location: O HR:83 bpm ECG Measurements Heart Rate 83 AXIS MA 155 P 89 QRSd 85 QRS 56 QT 380 T 41 QTc 447 Conclusion Sinus rhythm...normal P axis, V-rate 60- 99 Normal Electrocardiogram
== END 2021-09-11 13:48 | disposition home or self-care (01) ==
PROVIDERS: PCP Family Medicine; Visit Provider Physician Assistant Medical
DX: I48.0 Paroxysmal atrial fibrillation (principal)
CPT/HCPCS: 93005; 93010

== ENCOUNTER 2022-01-10 04:30 | Outpatient (CLI) | payer MEDICARE, OTHER, SELFPAY ==
[2022-01-10 13:30] LABS: Abs Immature Grans 0.01 10^3/uL (0.0-0.06); Absolute Basophil Count 0.01 10^3/uL (0.0-0.2); Absolute Eosinophil Count 0.16 10^3/uL (0.0-0.7); Absolute Lymphocyte Count 0.77 10^3/uL (1.2-3.4); Absolute Monocyte Count 0.36 10^3/uL (0.1-0.8); Absolute Neutrophil Count 3.05 10^3/uL (1.2-6.7); Basophils % 0.2; Eosinophils % 3.7; HCT 48.3 % (40.0-50.0); HGB 15.3 g/dL (13.5-17.5); Immature Grans % 0.2; Lymphocytes % 17.7; MCH 27.2 pg (27.0-33.0); MCHC 31.7 % (32.0-36.0); MCV 85.8 fL (80-95); MPV 10.1 fL (8.0-11.0); Monocytes % 8.3; Neutrophils % 69.9; Nucleated RBC 0 %; Platelet Count 143 10^3/uL (130-400); RBC 5.63 10^6/uL (4.36-5.78); RDW 14.9 % (11.8-14.1); RDW-SD 47.1 fL; WBC 4.36 10^3/uL (4.4-10.8)
[2022-01-10 14:32] LABS: ALT 29 U/L (16-63); AST 25 U/L (15-37); Albumin 4.3 g/dL (3.4-5.0); Alkaline Phosphatase 87 U/L (46-116); Anion Gap 7.6 mmol/L (3-11); BUN 20 mg/dL (7-18); Bilirubin, Direct 0.3 mg/dL (0.0-0.2); Bilirubin, Total 1.8 mg/dL (0.2-1.0); CO2 30.4 mmol/L (21.0-32.0); Calcium 9.3 mg/dL (8.5-10.1); Chloride 106 mmol/L (98-107); Glucose 128 mg/dL (74-106); Potassium 4.4 mmol/L (3.5-5.1); Sodium 144 mmol/L (136-145); Total Protein 7.2 g/dL (6.4-8.2)
== END 2022-01-10 04:31 | disposition home or self-care (01) ==
LOC: LBO 04:30
PROVIDERS: PCP Family Medicine; Visit Provider Internal Medicine Gastroenterology
DX: K75.4 Autoimmune hepatitis (principal)
CPT/HCPCS: 36415; 80053; 80076; 85025

== ENCOUNTER 2022-03-26 04:13 | Outpatient (CLI) | payer MEDICARE, OTHER, SELFPAY ==
[2022-03-26 11:17] LABS: HCT 45.9 % (40.0-50.0); HGB 14.5 g/dL (13.5-17.5); MCH 28.1 pg (27.0-33.0); MCHC 31.6 % (32.0-36.0); MCV 89 fL (80-95); MPV 10.4 fL (8.0-11.0); Platelet Count 141 10^3/uL (130-400); RBC 5.16 10^6/uL (4.36-5.78); RDW 14.2 % (11.8-14.1); RDW-SD 45.5 fL; WBC 4.55 10^3/uL (4.4-10.8)
[2022-03-26 11:34] LABS: Hemoglobin A1C 6.5 % (<5.7)
[2022-03-26 12:06] LABS: ALT 30 U/L (16-63); AST 19 U/L (15-37); Albumin 4.1 g/dL (3.4-5.0); Alkaline Phosphatase 81 U/L (46-116); Anion Gap 7.7 mmol/L (3-11); BUN 20 mg/dL (7-18); Bilirubin, Total 2.6 mg/dL (0.2-1.0); CO2 27.3 mmol/L (21.0-32.0); Chloride 108 mmol/L (98-107); Glucose 108 mg/dL (74-106); Potassium 4.2 mmol/L (3.5-5.1); Sodium 143 mmol/L (136-145); Total Protein 6.9 g/dL (6.4-8.2)
[2022-03-26 17:22] LABS: Calculated LDL 88 mg/dL (<100); Cholesterol 188 mg/dL (<200); HDL Cholesterol 50 mg/dL (40-60); Triglyceride 254 mg/dL (<150)
[2022-03-26 17:25] LABS: Microalb ug/mg Crea 13.2 ug/mg Cr
== END 2022-03-26 04:14 | disposition home or self-care (01) ==
LOC: LBO 04:13
PROVIDERS: PCP Family Medicine; Visit Provider Family Medicine
DX: E11.9 Type 2 diabetes mellitus without complications (principal); E78.5 Hyperlipidemia, unspecified; I25.118 Atherosclerotic heart disease of native coronary artery with other forms of angina pectoris; I48.91 Unspecified atrial fibrillation; K21.9 Gastro-esophageal reflux disease without esophagitis; K74.60 Unspecified cirrhosis of liver
CPT/HCPCS: 36415; 80053; 80061; 85027; 82043; 82570; 83036

== ENCOUNTER 2022-07-23 03:32 | Outpatient (CLI) | payer MEDICARE, OTHER, SELFPAY ==
[2022-07-23 16:04] LABS: Abs Immature Grans 0.01 10^3/uL (0.0-0.06); Absolute Basophil Count 0.02 10^3/uL (0.0-0.2); Absolute Lymphocyte Count 0.89 10^3/uL (1.2-3.4); Absolute Monocyte Count 0.47 10^3/uL (0.1-0.8); Absolute Neutrophil Count 2.97 10^3/uL (1.2-6.7); Basophils % 0.4; Eosinophils % 2.2; HCT 43.5 % (40.0-50.0); Immature Grans % 0.2; MCH 28.7 pg (27.0-33.0); MCHC 32.2 % (32.0-36.0); MCV 89 fL (80-95); MPV 10.5 fL (8.0-11.0); Monocytes % 10.5; Neutrophils % 66.7; Platelet Count 135 10^3/uL (130-400); RBC 4.87 10^6/uL (4.36-5.78); RDW 13.9 % (11.8-14.1); RDW-SD 45.4 fL; WBC 4.46 10^3/uL (4.4-10.8)
[2022-07-23 16:36] LABS: ALT 34 U/L (16-63); AST 25 U/L (15-37); Albumin 3.9 g/dL (3.4-5.0); Alkaline Phosphatase 80 U/L (46-116); BUN 15 mg/dL (7-18); Bilirubin, Total 1.9 mg/dL (0.2-1.0); Chloride 105 mmol/L (98-107); Estimated GFR 76.56 (mL/min/1.73m2); Glucose 140 mg/dL (74-106); Potassium 4.1 mmol/L (3.5-5.1); Sodium 144 mmol/L (136-145); Total Protein 7.2 g/dL (6.4-8.2)
== END 2022-07-23 03:33 | disposition home or self-care (01) ==
LOC: LBO 03:32
PROVIDERS: PCP Family Medicine; Visit Provider Internal Medicine Gastroenterology
DX: K74.60 Unspecified cirrhosis of liver (principal); K75.4 Autoimmune hepatitis
CPT/HCPCS: 80053; 85025

== ENCOUNTER 2022-09-07 08:29 | Outpatient (CLI) | payer MEDICARE, OTHER, SELFPAY ==
--- NOTE | 2022-09-07 11:15 | RT.EKG_ITS ---
APPROVED REPORT Exam: Resting ECG Reason for Exam: atrial fibrillation Patient Location: O HR:75 bpm ECG Measurements Heart Rate 75 AXIS MA 167 P 71 QRSd 84 QRS 65 QT 391 T 37 QTc 437 Conclusion Sinus rhythm...normal P axis, V-rate 50- 99 Normal Electrocardiogram
== END 2022-09-07 08:30 | disposition home or self-care (01) ==
PROVIDERS: PCP Family Medicine; Visit Provider Internal Medicine Cardiovascular Disease
DX: I48.91 Unspecified atrial fibrillation (principal)
CPT/HCPCS: 93010

== ENCOUNTER → 2022-09-07 11:14 | Outpatient (BNVA) | payer MEDICARE, OTHER, SELFPAY | PROVIDERS: PCP Family Medicine; Referring Provider Family Medicine; Visit Provider Internal Medicine Cardiovascular Disease | DX: I48.0 Paroxysmal atrial fibrillation (principal); I25.10 Atherosclerotic heart disease of native coronary artery without angina pectoris; K75.4 Autoimmune hepatitis; K74.60 Unspecified cirrhosis of liver | CPT/HCPCS: 93005; 99203 ==

== ENCOUNTER → 2022-09-25 02:11 | Outpatient (CLI) | payer MEDICARE, OTHER, SELFPAY ==
--- NOTE | 2022-09-25 13:30 | DI.US_ITS ---
Exam(s) US ABDOMEN LIMITED EXAM: US ABDOMEN LIMITED CLINICAL HISTORY: HEPATIC CIRRHOSIS, K74.60; HCC SURVEILLANCE TECHNIQUE: Ultrasound abdomen performed using standard protocol. COMPARISON: CT ABD PELVIS WITH CONTRAST from 03/08/2017 CT ABD PELVIS WITH CONTRAST from 04/17/2017 US US ABDOMEN LIMITED from 05/30/2021 FINDINGS: PANCREAS: Normal where visualized. LIVER: There is diffuse increased echogenicity of the liver. The liver has a nodular contour. Hepat opedal flow in the Portal Vein. The liver measures in 17.6 cm length. GALLBLADDER: No evidence of cholelithiasis. No evidence of wall thickening. No pericholecystic fluid identified. There is a small 1.1 x 1.1 x 0.8 cm anechoic space at the gallbladder fundus which commun icates with the gallbladder. This may represent a small diverticulum or Phrygian cap. This was unch anged compared to prior examinations. BILIARY SYSTEM: Common bile duct measures < 7 mm. No intrahepatic biliary ductal dilation. LUGO'S SIGN: Negative. RIGHT KIDNEY: Kidney is normal in size. No evidence of renal calculi. No evidence of hydronephrosis. No renal mass or cyst identified. ASCITES: None seen. IMPRESSION: Hepatic steatosis. Nodular contour of the liver raises the question of hepatic cirrhosis. DATA REPOSITORY:
== END ==
PROVIDERS: PCP Family Medicine; Visit Provider Internal Medicine Gastroenterology
DX: K76.0 Fatty (change of) liver, not elsewhere classified (principal)
CPT/HCPCS: 76705

== ENCOUNTER 2022-11-28 11:55 | Outpatient (CLI) | payer MEDICARE, SELFPAY ==
[2022-11-28 16:40] LABS: HCT 46.6 % (40.0-50.0); HGB 15.2 g/dL (13.5-17.5); MCH 28.3 pg (27.0-33.0); MCHC 32.6 % (32.0-36.0); MCV 87 fL (80-95); Platelet Count 145 10^3/uL (130-400); RBC 5.37 10^6/uL (4.36-5.78); RDW 13.5 % (11.8-14.1); RDW-SD 42.8 fL; WBC 4.67 10^3/uL (4.4-10.8)
[2022-11-28 16:57] LABS: ALT 34 U/L (16-63); AST 25 U/L (15-37); Albumin 4.1 g/dL (3.4-5.0); Alkaline Phosphatase 89 U/L (46-116); Anion Gap 8.1 mmol/L (3-11); BUN 21 mg/dL (7-18); Bilirubin, Total 1.9 mg/dL (0.2-1.0); CO2 27.9 mmol/L (21.0-32.0); CREATININE 1.1 mg/dL (0.70-1.30); Calcium 9.4 mg/dL (8.5-10.1); Chloride 104 mmol/L (98-107); Estimated GFR 68.29 (mL/min/1.73m2); Glucose 117 mg/dL (74-106); Potassium 3.9 mmol/L (3.5-5.1); Sodium 140 mmol/L (136-145); Total Protein 7.5 g/dL (6.4-8.2)
== END 2022-11-28 11:56 | disposition home or self-care (01) ==
LOC: LBO 11:56
PROVIDERS: PCP Family Medicine; Visit Provider Family Medicine
DX: I25.10 Atherosclerotic heart disease of native coronary artery without angina pectoris (principal); K75.4 Autoimmune hepatitis; E78.5 Hyperlipidemia, unspecified; E11.9 Type 2 diabetes mellitus without complications
CPT/HCPCS: 36415; 80053; 85027

== ENCOUNTER 2022-11-29 09:07 | Outpatient (CLI) | payer MEDICARE, SELFPAY ==
--- NOTE | 2022-11-29 09:00 | RT.EKG_ITS ---
APPROVED REPORT Exam: Resting ECG Reason for Exam: EKG evaluation for medication interaction Patient Location: O HR:80 bpm ECG Measurements Heart Rate 80 AXIS RI 163 P 78 QRSd 96 QRS 68 QT 405 T 54 QTc 468 Conclusion Sinus rhythm...normal P axis, V-rate 50- 99 Right atrial abnormality
== END 2022-11-29 09:08 | disposition home or self-care (01) ==
LOC: DI.CM 09:10
PROVIDERS: PCP Family Medicine; Visit Provider Family Medicine
DX: T50.905A Adverse effect of unspecified drugs, medicaments and biological substances, initial encounter (principal); R94.31 Abnormal electrocardiogram [ECG] [EKG]
CPT/HCPCS: 93010

== ENCOUNTER 2022-12-03 11:02 | Day surgery (SDC) | payer MEDICARE, SELFPAY ==
[2022-12-03 11:04] VITALS: BP 112/74; PULSE 75; RESP 18; TEMP 37.1; O2SAT 96
[2022-12-03] MEDS: Tropicam./Phenyleph. (1/2.5%) 5 ML BTL OS ×3 (11:33→11:41)
--- NOTE | 2022-12-03 12:00 | W.ANESPRE ---
General Info Date of Service Date Performed: 12/03/22 Height: 5 ft 8.5 in Weight: 100.5 kg Body Mass Index (BMI): 33.2 Surgical Procedure: Operation Date: 12/03/22 13:10 Proposed Procedure Side Surgeon p Cataract Extraction with IOL Implant Left Joshua Gibbs MD Meds Allergies and Home Medications Allergies Allergy/AdvReac Type Severity Reaction Status Date / Time azathioprine Allergy rash-potential Verified 11/30/22 11:16 thrombocytopenia (KJG) Home Medication Medication Instructions Recorded vitamin B complex 1 tab PO .3xweekly d/t furosemide 08/21/18 CENTRUM SILVER TABLET 1 tab PO DAILY 10/17/18 magnesium citrate 125 mg capsule See Rx Instructions PO DAILY Loop 10/17/18 Diuretic cholecalciferol (vitamin D3) 25 1,000 unit PO DAILY 09/01/19 mcg (1,000 unit) capsule ursodiol 300 mg capsule 600 mg PO BID #180 caps 04/15/20 blood-glucose meter (OneTouch #1 ea 11/11/20 Ultra2 Meter kit) lancets (Rapt MediaTouch UltraSoft #100 ea 11/11/20 Lancets) mycophenolate mofetil 500 mg 500 mg PO BID 05/30/21 tablet (CellCept) blood sugar diagnostic #100 ea 09/04/21 apixaban 5 mg tablet (Eliquis) 5 mg PO BID #180 tabs 05/18/22 insulin syringe-needle U-100 0.3 #100 ea 05/22/22 mL 31 gauge x 5/16 (BD Insulin Syringe Ultra-Fine) dapagliflozin 10 mg tablet 10 mg PO DAILY #90 tab-caps 05/28/22 (Farxiga) rosuvastatin 20 mg tablet (Crestor) 20 mg PO DAILY #90 tabs 06/18/22 flash glucose sensor (FreeStyle #6 ea 09/06/22 Chang 14 Day Sensor kit) insulin glargine 100 unit/mL (3 22 unit subcut QAM 09/07/22 mL) subcutaneous pen (Basaglar KwikPen U-100 Insulin) dofetilide 500 mcg capsule 500 mcg PO BID #180 caps 10/22/22 (Tikosyn) furosemide 20 mg tablet 20 mg PO DAILY #90 tab-caps 11/05/22 pen needle, diabetic 31 gauge x #400 ea 11/09/2201/17 (BD Ultra-Fine Mini Pen Needle) Current Visit Medications: Current Medications Generic Name Dose Route Start Last Admin Trade Name Freq PRN Reason Stop Dose Admin Acetaminophen 1,000 mg 12/03/22 06:00 Acetaminophen 500 Mg Tab PO Q4H PRN PRN Miscellaneous Medication 0 ml 12/03/22 06:00 Prednisolone 1%, Moxifloxacin 0.5%, Nepafenac 0.1% 5ml Btl OS DIRECTED [facility] Miscellaneous Medication 0 ml 12/03/22 06:00 12/03/22 11:41 Tropicam./Phenyleph. 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 states not chronic ROB (obstructive sleep apnea) PAF (paroxysmal atrial fibrillation) Pulmonary embolism prothrombin mutation , chronic anticoagulation 1977, 1984, 2003 Surgical History Surgical History Appendectomy H/O heart artery stent Placed 2014 History of appendectomy Tobacco Smoking/Tobacco Use Status: Former Tobacco Use Passive smoking exposure: No Alcohol Alcohol Intake: former Substance Use Substance use: Never Substance use type: does not use Vital Signs and Lab Results Vital Signs Most Recent Vital Signs in EMR: Most Recent Vital Signs Temp Pulse Resp BP Pulse Ox 37.1 C 75 18 112/74 96 12/03/22 11:04 12/03/22 11:04 12/03/22 11:04 12/03/22 11:04 12/03/22 11:04 Point of Care Results Point of Care Results: Finger Stick Blood Glucose 145 12/03/22 11:16 Lab Results Blood Type / Crossmatch: No Data to Display Complete Blood Count: White Blood Count 4.67 10^3/uL (4.4-10.8) 11/28/22 16:20 Red Blood Count 5.37 10^6/uL (4.36-5.78) 11/28/22 16:20 Hemoglobin 15.2 g/dL (13.5-17.5) 11/28/22 16:20 Hematocrit 46.6 % (40.0-50.0) 11/28/22 16:20 Platelet Count 145 10^3/uL (130-400) 11/28/22 16:20 Complete Metabolic Panel: Sodium 140 mmol/L (136-145) 11/28/22 16:20 Potassium 3.9 mmol/L (3.5-5.1) 11/28/22 16:20 Chloride 104 mmol/L (98-107) 11/28/22 16:20 Carbon Dioxide 27.9 mmol/L (21.0-32.0) 11/28/22 16:20 BUN 21 mg/dL (7-18) H 11/28/22 16:20 Creatinine 1.1 mg/dL (0.70-1.30) 11/28/22 16:20 Est GFR (CKD-EPI 2020) 68.29 (mL/min/1.73m2) 11/28/22 16:20 Calcium 9.4 mg/dL (8.5-10.1) 11/28/22 16:20 Albumin 4.1 g/dL (3.4-5.0) 11/28/22 16:20 Glucose 117 mg/dL (74-106) H 11/28/22 16:20 Liver Function Panel: Alanine Aminotransferase (ALT/SGPT) 34 U/L (16-63) 11/28/22 16:20 Aspartate Amino Transf (AST/SGOT) 25 U/L (15-37) 11/28/22 16:20 Coagulation Panel: No Data to Display Cardiac Panel: No Data to Display Arterial Blood Gas: No Data to Display Venous Blood Gas: No Data to Display Pancreas Panel: No Data to Display Thyroid Panel: No Data to Display Infectious Disease: No Data to Display Blood Cultures: No Data to Display Toxicology Panel: No Data to Display Imaging and Studies Imaging and Studies Study information below may be from another EMR and interpreted by another provider. Please see original notes in EMR for more complete details. EKG Summary: EKG PATIENT NAME: Olga Early #: [id number] ORDERING PROVIDER: Bo Villegas M.D., DCACCOUNT #: [id number] PRIMARY CARE PROVIDER:BO VILLEGAS MD, DC DATE/TIME OF SERVICE: 11/29/22 1247 : 3PERFORMING LOCATION: [facility] APPROVED REPORT Exam: Resting ECG Reason for Exam: EKG evaluation for medication interaction Patient Location: O HR:80 bpm ECG Measurements Heart Rate 80 AXIS MA 163 P 78 QRSd 96 QRS 68 QT 405 T54 QTc 468 Conclusion Sinus rhythm...normal P axis, V-rate 50- 99 Right atrial abnormality <Electronically signed by ABAD HEWITT MD in OV> E-Sign Date: 11/29/22 E-Sign Time: 1202 Echocardiogram Summary: Noted from [facility] [place] Anes Preop 10/05/2021: Echo 12/14/2010: EF=55%. RV mildly dilated with mildly reduced function. [id number]. Moderate biatrial enlargement. Anesthesia Assessment and Plan Anesthesia History Personal History: No History of Anesthesia Complications Family History: No Family History of Anesthesia Complications Exercise Tolerance Exercise Tolerance: Metabolic Equivalents>4 Pertinent Negatives Pertinent Negatives: No Symptoms of GERD, No History of CVA/TIA and Other ([facility] [place] Anes preop 10/05/2021: Prothrombin [id number] mutation, on chronic anticoagulation. Pulmonary emboli in 1977, 1984, 2003.) Cardiac & Pulmonary Exam Cardiac Exam: Normal S1/S2 Heart Sounds Pulmonary Exam: Clear Bilateral Breath Sounds and Active Dry Cough Implantable Cardiac Device Does patient have a Pacemaker or an ICD?: No Airway Exam Known Difficult Airway: No Mallampati Class: 3 Mouth Opening: Normal (> 3cm) Thyromental Distance: Greater than 3 cm Facial Hair: Full [place] Neck Range of Motion: Full ROM Neck Circumference: Normal Teeth Condition: Normal Dentition, Generalized Poor Dentition and Other (reports loose filling) ASA Classification ASA Score: ASA 3 Emergency Case?: No NPO Status NPO Status: NPO Clears >2 hours, Solids >8 hours Anesthesia Plan Resuscitation Status: Full Code Anesthesia Technique: MAC Anesthesia Airway Planned: Natural Airway Monitors Used: Standard Monitors Preoperative Comments:: 77 yo male for cataract. Discussed options and patient wants to attempt without MKO. I did inform him that I believe this is the best route for him. I did also discuss placement of PIV and IV sedation options.
[2022-12-03 12:02] VITALS: BMI 33.2
[2022-12-03] MEDS: Duovisc Viscoelastic System EACH 1 EACH (12:47)
[2022-12-03] MEDS: Balanced Salt Soln.-PLUS 500 ML BAG (12:47)
[2022-12-03] MEDS: Tetracaine 0.5% 4 ML BTL OS (12:47)
[2022-12-03] MEDS: Lidocaine 2% Jelly 6 ML SYR (12:48)
[2022-12-03] MEDS: Lidocaine 1% Pres-Free 5 ML VIAL (12:48)
[2022-12-03] MEDS: Povidone-Iodine Ophth 30 ML BTL (12:49)
[2022-12-03 13:07] VITALS: BP 106/75; PULSE 73; RESP 16; TEMP 36.6; O2SAT 98
--- NOTE | 2022-12-03 13:09 | W.PM.DSUDISC ---
Date of service: 12/03/22 Time of Service: 13:09 Discharge Plan Disposition Patient Disposition: Home Discharge Details Attending Provider: Joshua Gibbs Primary Care Provider: Sandra Villegas Home Meds and New Rx's Prescriptions: No Action mycophenolate mofetil [CellCept] 500 mg tablet 500 mg PO BID Label Comments: Increased dose as per Candie Hightower Increased dose as per Candie Hightower TRACY LINDO 01/08/2019 (DME) OneTouch Ultra Blue Test Strip Strip See Rx Instructions .ROUTE .MEDSUPPLY Qty: 100 4RF Rx Instructions: test twice daily insulin glargine [Basaglar KwikPen U-100 Insulin] 100 unit/mL (3 mL) insulin pen 22 unit subcut QAM cholecalciferol (vitamin D3) 1,000 unit capsule 1,000 unit PO DAILY vitamin B complex tablet 1 tab PO .3xweekly Label Comments: 1 tablet: vitamin C (120 mg), thiamin (5 mg), riboflavin (5 mg), niacin (25 mg), vitamin B6 (5 mg), folic acid (400 mcg), biotin (300 mcg), pantothenic acid (10 mg). magnesium citrate 125 mg capsule See Rx Instructions PO DAILY Label Comments: 2-3 capsules PO Daily 4 hrs FROM EITHER CELLCEPT DOSE - REC. MIDDLE OF DAY. 3 capsules PO DAILY; Takes NOW Magnesium Citrate capsules. 2 AM, 1PM. Total elemental Mg is 400 MG Rx Instructions: 2-3 capsules PO Daily 4 hrs FROM EITHER CELLCEPT DOSE - REC. MIDDLE OF DAY. 3 capsules PO DAILY; Takes NOW Magnesium Citrate capsules. 2 AM, 1PM. Total elemental Mg is 400 MG CENTRUM SILVER TABLET 1 EACH tablet 1 tab PO DAILY Label Comments: Place in the middle of day or 4 hours apart from CellCept ursodiol 300 mg capsule 600 mg PO BID Qty: 180 3RF (DME) lancets [OneTouch UltraSoft Lancets] Misc See Rx Instructions .ROUTE .MEDSUPPLY Qty: 100 3RF Rx Instructions: As directed (DME) blood-glucose meter [OneTouch Ultra2 Meter] Kit See Rx Instructions .ROUTE .MEDSUPPLY Qty: 1 0RF Rx Instructions: As directed Eliquis 5 mg tablet 5 mg PO BID Qty: 180 3RF (DME) insulin syringe-needle U-100 [BD Insulin Syringe Ultra-Fine] 0.3 mL 31 gauge x 5/16 syringe See Rx Instructions .ROUTE .MEDSUPPLY Qty: 100 6RF Rx Instructions: As directed Farxiga 10 mg tablet 10 mg PO DAILY Qty: 90 4RF rosuvastatin [Crestor] 20 mg tablet 20 mg PO DAILY Qty: 90 3RF Hold Instructions: Changed by Provider (DME) FreeUP Online Chang 14 Day Sensor Kit See Rx Instructions .Route Qty: 6 4RF Rx Instructions: As [id number] dofetilide [Tikosyn] 500 mcg capsule 500 mcg PO BID Qty: 180 3RF furosemide 20 mg tablet 20 mg PO DAILY Qty: 90 3RF Hold Instructions: Home Medication placed on hold at Doctor's office (DME) pen needle, diabetic [BD Ultra-Fine Mini Pen Needle] 31 gauge x 3/16 needle See Dose Instructions .ROUTE .MEDSUPPLY Qty: 400 6RF Dose Instruction: As directed Rx Instructions: Once daily. E11.9 Discharge Instructions Stand Alone Forms: Post-op Topical Cataract, Sachin Rosa (DSU) Discharge Orders Discharge Orders: Discharge Order (Routine); Ordered 12/03/22 Ordered By: Joshua Gibbs DS: Diagnosis Discharge Diagnosis (1) Nuclear sclerotic cataract of left eye: Status: Resolved
--- NOTE | 2022-12-03 13:10 | ROE_ITS ---
Date of service: 12/03/22 Time of Service: 13:10 Operative Note Operative Note DATE OF PROCEDURE: 12/03/22 PRE-OP DIAGNOSIS: Nuclear cataract, left eye POST-OP DIAGNOSIS: same PROCEDURE: Cataract extraction using phacoemulsification with intraocular lens implant, left eye SURGEON: Joshua Gibbs ANESTHESIA TYPE: Local By Surgeon and MAC Refer to Anesthesia Record PATHOLOGY: none sent COMPLICATIONS: None Patient was transported to: same day Patient's condition: stable Implants: Sanya and Sanya Tecnis Eyhance [id number] Indications: Progressive decreased vision due to cataract, left eye Procedure Description: CATARACT SURGERY OPERATIVE REPORT PREOPERATIVE DIAGNOSIS: 1. Nuclear cataract, left eye POSTOPERATIVE DIAGNOSIS: Same OPERATION: 1. Cataract extraction using phacoemulsification with posterior chamber intraocular lens implant, left eye. IOL: IOL Wine Bottle Inspector/Model: Sanya & Sanya Tecnis Eyhance [id number] IOL Power: + 18.5 diopters IOL Serial Number: [id number] Optic Diameter: 6.0 mm Haptic/Overall Diameter: 13.0 mm PHACO INFO: WanderChannelAdvisor Vision System with OZil and Active Fluidics Cumulative Dispersed Energy (CDE): 14.67 seconds SURGEON: Joshua Gibbs MD, ELIEL ANESTHESIA: Monitored [facility] (MAC), with local sub-tenon's anesthetic infiltration COMPLICATIONS: None SPECIMENS: None INDICATIONS FOR PROCEDURE: The patient is a 77-year-old gentleman with history of diminished visual acuity in his left eye secondary to the development of nuclear nuclear cataract. The option of cataract surgery was offered to the patient and he felt he was symptomatic enough that he wished to proceed. PROCEDURE: The correct surgical eye was identified and marked as the left eye and the pupil was dilated in the preoperative area using mydriatics and cycloplegics. The dilated pupil size was 7.0 mm. The patient elected to proceed without oral sedation. The patient was brought to the operating room where cardiopulmonary monitoring was instituted and surgical time-out was performed, confirming the correct operative eye and IOL power. Topical anesthesia was administered and ophthalmic povidone-iodine 5% was instilled into the conjunctival fornices. Lidocaine gel was applied to the cornea and the kimberly-ocular area was prepped with Betadine 10% solution and draped in the usual sterile fashion for intraocular surgery, including an aperture drape. A Tegaderm transparent film dressing was cut in half and used to cover the lashes and lid margins. Care was taken to sequester the lashes and lid margins under the Tegaderm dressing. A lid speculum was placed between the lids of the operative eye and the Wander LuxOR Revalia operating microscope was maneuvered into position. Anuj scissors were then used to make a conjunctival buttonhole approximately 6mm posterior to the limbus in the inferonasal quadrant. Blunt dissection was carried out to expose bare sclera, and a blunt-tipped sub-tenon?s anesthesia cannula was introduced and passed posteriorly along the globe where non- preserved plain lidocaine was injected into posterior sub-Tenon?s space. A sideport knife was used to make a paracentesis port superiorly/superiortemporally. Intraocular phenylephrine/lidocaine was injected int the anterior chamber.. The anterior chamber was filled with viscoelastic. A keratome knife was used to construct a 2-plane near-clear corneal tunnel extending 2.0mm into clear cornea temporally. A flap was raised on the anterior capsule and capsulorhexis forceps were used to complete a continuous curvilinear capsulorhexis of 5.0 mm. Balanced salt solution was then used to perform cortical cleaving hydrodissection and nuclear hydrodelineation until the lens could be freely rotated within the capsular bag. The lens nucleus was then disassembled and re moved within the capsular bag and iris plane using phacoemulsification. Residual cortical material was removed using the 45-degree angled silicone I/A tip with 0.3mm port. The posterior capsule was carefully polished to remove as much residual lens epithelial cells as safely possible. The capsular bag was then inflated and the anterior chamber deepened with viscoelastic. The lens implant described above was inserted into the capsular bag using the Sanya and Sanya Simplicity pre-loaded injector. . A Kuglen hook was used to dial the IOL into position. Residual viscoelastic was then removed first from posterior to the IOL, then from the anterior chamber using the I/A handpiece. The lens implant was noted to center nicely within the capsular bag. The incisions were stromally hydrated, and the anterior chamber was reformed using BSS. Then 0.5cc of moxifloxacin 1.0mg/ml were injected into the capsular bag and anterior chamber. The incisions were checked with a Weck spear and found to be secure. Several drops of ophthalmic povidone-iodine 5% were then applied to the eye followed by two drops of Imprimis combination prednisolone/moxifloxacin/nepafenac solution. The drapes were removed and a clear plastic protective eye shield was placed over the eye. The patient was then returned to Same Day Surgery in stable condition.
--- NOTE | 2022-12-03 15:22 | W.ANESPOSTOP ---
Postoperative Evaluation Date, Time and Location Date Performed: 12/03/22 Time Performed: 13:10 Patient Location: Day Surgery Unit Vital Signs Most Recent Imported Vital Signs: Most Recent Vital Signs Temp Pulse Resp BP Pulse Ox 36.6 C 73 16 106/75 98 12/03/22 13:07 12/03/22 13:07 12/03/22 13:07 12/03/22 13:07 12/03/22 13:07 Pain Score Most Recent Pain Score: Most Recent Pain Score Pain Level 0 12/03/22 13:07 Assessment Mental Status: Awake (Alert & Oriented to Patient Baseline) Airway and Respiratory Function: Patent airway with normal (patient baseline) respiratory exam Cardiovascular Function: Hemodynamically Stable Hydration Status: Adequately Hydrated Nausea & Vomiting: No Nausea or Vomiting Pain: Pt. Denies Any Pain Peripheral Nerve Block: Patient did not receive a nerve block
== END 2022-12-03 13:40 | disposition home or self-care (01) ==
LOC: SUR 11:02
PROVIDERS: PCP Family Medicine; Visit Provider Ophthalmology
PROC: (CPT 66984; principal; 2022-12-03 13:00)
DX: H25.12 Age-related nuclear cataract, left eye (principal)
CPT/HCPCS: 66984; V2632

== ENCOUNTER 2022-12-17 09:38 | Day surgery (SDC) | payer MEDICARE, SELFPAY ==
[2022-12-17] MEDS: Tropicam./Phenyleph. (1/2.5%) 5 ML BTL OD ×3 (10:32→10:55)
[2022-12-17 10:34] VITALS: BP 117/75; PULSE 73; RESP 16; TEMP 36.5; O2SAT 95
--- NOTE | 2022-12-17 10:45 | W.ANESPRE ---
General Info Date of Service Date Performed: 12/17/22 Height: 5 ft 8.5 in Weight: 100.5 kg Body Mass Index (BMI): 33.2 Surgical Procedure: Operation Date: 12/17/22 12:40 Proposed Procedure Side Surgeon p Cataract Extraction with IOL Implant Right Joshua Gibbs MD Meds Allergies and Home Medications Allergies Allergy/AdvReac Type Severity Reaction Status Date / Time azathioprine Allergy rash-potential Verified 12/17/22 10:24 thrombocytopenia (KJG) Home Medication Medication Instructions Recorded vitamin B complex 1 tab PO .3xweekly d/t furosemide 08/21/18 CENTRUM SILVER TABLET 1 tab PO DAILY 10/17/18 magnesium citrate 125 mg capsule See Rx Instructions PO DAILY Loop 10/17/18 Diuretic cholecalciferol (vitamin D3) 25 1,000 unit PO DAILY 09/01/19 mcg (1,000 unit) capsule ursodiol 300 mg capsule 600 mg PO BID #180 caps 04/15/20 blood-glucose meter (OneTouch #1 ea 11/11/20 Ultra2 Meter kit) lancets (Optimal TechnologiesTouch UltraSoft #100 ea 11/11/20 Lancets) mycophenolate mofetil 500 mg 500 mg PO BID 05/30/21 tablet (CellCept) blood sugar diagnostic #100 ea 09/04/21 apixaban 5 mg tablet (Eliquis) 5 mg PO BID #180 tabs 05/18/22 insulin syringe-needle U-100 0.3 #100 ea 05/22/22 mL 31 gauge x 5/16 (BD Insulin Syringe Ultra-Fine) dapagliflozin 10 mg tablet 10 mg PO DAILY #90 tab-caps 05/28/22 (Farxiga) rosuvastatin 20 mg tablet (Crestor) 20 mg PO DAILY #90 tabs 06/18/22 flash glucose sensor (FreeStyle #6 ea 09/06/22 Chang 14 Day Sensor kit) insulin glargine 100 unit/mL (3 24 unit subcut QAM 09/07/22 mL) subcutaneous pen (Basaglar KwikPen U-100 Insulin) dofetilide 500 mcg capsule 500 mcg PO BID #180 caps 10/22/22 (Tikosyn) furosemide 20 mg tablet 20 mg PO DAILY #90 tab-caps 11/05/22 pen needle, diabetic 31 gauge x #400 ea 11/09/2201/17 (BD Ultra-Fine Mini Pen Needle) Current Visit Medications: Current Medications Generic Name Dose Route Start Last Admin Trade Name Freq PRN Reason Stop Dose Admin Acetaminophen 1,000 mg 12/17/22 06:00 Acetaminophen 500 Mg Tab PO Q4H PRN PRN Miscellaneous Medication 0 ml 12/17/22 06:00 12/17/22 10:32 Tropicam./Phenyleph. (1/2.5%) 5 Ml Btl OD 1 drp DIRECTED DARRELL Administration Miscellaneous Medication 0 ml 12/17/22 06:00 Prednisolone 1%, Moxifloxacin 0.5%, Nepafenac 0.1% 5ml Btl OD DIRECTED DARRELL Tetracaine HCl 0 ml 12/17/22 06:00 Tetracaine 0.5% 4 Ml Btl OD DIRECTED DARRELL PFSH Active Problems Active Problems: Problem Status Onset Code Atrial fibrillation 08/26/13 I48.91 Benign prostatic hyperplasia N40.0 Cirrhosis of liver without ascites 05/03/17 K74.60 Coronary artery disease of [place] artery of [place] heart with stable angina pectoris 09/14/16 I25.118 Diabetes mellitus 07/02/12 E11.9 Gastroesophageal reflux disease K21.9 Hematuria 11/29/15 R31.9 Hyperlipidemia E78.5 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 states not chronic ROB (obstructive sleep apnea) PAF (paroxysmal atrial fibrillation) Pulmonary embolism prothrombin mutation , chronic anticoagulation 1977, 1984, 2003 Surgical History Surgical History (Updated 12/17/22 @ 10:24 by Kristal Moon) Appendectomy H/O heart artery stent Placed 2014 History of appendectomy Hx of cataract removal with insertion of prosthetic lens 12/2022 Tobacco Smoking/Tobacco Use Status: Former Tobacco Use Passive smoking exposure: No Alcohol Alcohol Intake: former Substance Use Substance use: Never Substance use type: does not use Vital Signs and Lab Results Lab Results Blood Type / Crossmatch: No Data to Display Complete Blood Count: White Blood Count 4.67 10^3/uL (4.4-10.8) 11/28/22 16:20 Red Blood Count 5.37 10^6/uL (4.36-5.78) 11/28/22 16:20 Hemoglobin 15.2 g/dL (13.5-17.5) 11/28/22 16:20 Hematocrit 46.6 % (40.0-50.0) 11/28/22 16:20 Platelet Count 145 10^3/uL (130-400) 11/28/22 16:20 Complete Metabolic Panel: Sodium 140 mmol/L (136-145) 11/28/22 16:20 Potassium 3.9 mmol/L (3.5-5.1) 11/28/22 16:20 Chloride 104 mmol/L (98-107) 11/28/22 16:20 Carbon Dioxide 27.9 mmol/L (21.0-32.0) 11/28/22 16:20 BUN 21 mg/dL (7-18) H 11/28/22 16:20 Creatinine 1.1 mg/dL (0.70-1.30) 11/28/22 16:20 Est GFR (CKD-EPI 2020) 68.29 (mL/min/1.73m2) 11/28/22 16:20 Calcium 9.4 mg/dL (8.5-10.1) 11/28/22 16:20 Albumin 4.1 g/dL (3.4-5.0) 11/28/22 16:20 Glucose 117 mg/dL (74-106) H 11/28/22 16:20 Liver Function Panel: Alanine Aminotransferase (ALT/SGPT) 34 U/L (16-63) 11/28/22 16:20 Aspartate Amino Transf (AST/SGOT) 25 U/L (15-37) 11/28/22 16:20 Coagulation Panel: No Data to Display Cardiac Panel: No Data to Display Arterial Blood Gas: No Data to Display Venous Blood Gas: No Data to Display Pancreas Panel: No Data to Display Thyroid Panel: No Data to Display Infectious Disease: No Data to Display Blood Cultures: No Data to Display Toxicology Panel: No Data to Display Imaging and Studies Imaging and Studies Study information below may be from another EMR and interpreted by another provider. Please see original notes in EMR for more complete details. EKG Summary: EKG PATIENT NAME: Olga Early #: [id number] ORDERING PROVIDER: Bo Villegas M.D., DCACCOUNT #: [id number] PRIMARY CARE PROVIDER:BO VILLEGAS MD, DC DATE/TIME OF SERVICE: 11/29/22 1247 : 3PERFORMING LOCATION: [facility] APPROVED REPORT Exam: Resting ECG Reason for Exam: EKG evaluation for medication interaction Patient Location: HR:80 bpm ECG Measurements Heart Rate 80 AXIS CO 163 P 78 QRSd 96 QRS 68 QT 405 T54 QTc 468 Conclusion Sinus rhythm...normal P axis, V-rate 50- 99 Right atrial abnormality <Electronically signed by ABAD HEWITT MD in OV> E-Sign Date: 11/29/22 E-Sign Time: 1202 Echocardiogram Summary: Noted from [facility] [place] Anes Preop 10/05/2021: Echo 12/14/2010: EF=55%. RV mildly dilated with mildly reduced function. [id number]. Moderate biatrial enlargement. Anesthesia Assessment and Plan Anesthesia History Personal History: No History of Anesthesia Complications Family History: No Family History of Anesthesia Complications Exercise Tolerance Exercise Tolerance: Metabolic Equivalents>4 Cardiac & Pulmonary Exam Cardiac Exam: Normal S1/S2 Heart Sounds Pulmonary Exam: Clear Bilateral Breath Sounds Implantable Cardiac Device Does patient have a Pacemaker or an ICD?: No Airway Exam Known Difficult Airway: No Mallampati Class: 3 Mouth Opening: Normal (> 3cm) Thyromental Distance: Greater than 3 cm Neck Range of Motion: Full ROM Neck Circumference: Normal Teeth Condition: Normal Dentition, Generalized Poor Dentition and Other (reports loose filling) ASA Classification ASA Score: ASA 3 Emergency Case?: No NPO Status NPO Status: NPO Clears >2 hours, Solids >8 hours Anesthesia Plan Resuscitation Status: Full Code Anesthesia Technique: MAC Anesthesia Airway Planned: Natural Airway Monitors Used: Standard Monitors Preoperative Comments:: 77 yo male for cataract. previous without MKO 12/03/22 anesthesia note Discussed options and patient wants to attempt without MKO. I did inform him that I believe this is the best route for him. I did also discuss placement of PIV and IV sedation options. Would like to proceed as he did the last time. Denies any major health history changes.
[2022-12-17 10:48] VITALS: BMI 33.2
[2022-12-17] MEDS: Lidocaine 2% Jelly 6 ML SYR (11:28)
[2022-12-17] MEDS: Povidone-Iodine Ophth 30 ML BTL (11:28)
[2022-12-17] MEDS: Tetracaine 0.5% 4 ML BTL OD (11:28)
[2022-12-17] MEDS: Duovisc Viscoelastic System EACH 1 EACH (11:32)
[2022-12-17] MEDS: Balanced Salt Soln.-PLUS 500 ML BAG (11:32)
[2022-12-17] MEDS: Lidocaine 1% Pres-Free 5 ML VIAL (11:33)
--- NOTE | 2022-12-17 11:52 | PDOC.DSDIS_ITS ---
Date of service: 12/17/22 Time of Service: 11:52 Discharge Plan Disposition Patient Disposition: Home Discharge Details Attending Provider: Joshua Gibbs Primary Care Provider: Sandra Villegas Home Meds and New Rx's Prescriptions: No Action mycophenolate mofetil [CellCept] 500 mg tablet 500 mg PO BID Patient Comments: Increased dose as per Candie Hightower Increased dose as per Candie Hightower TRACY LINDO 01/08/2019 (DME) OneTouch Ultra Blue Test Strip Strip See Rx Instructions .ROUTE .MEDSUPPLY Qty: 100 4RF Rx Instructions: test twice daily insulin glargine [Basaglar KwikPen U-100 Insulin] 100 unit/mL (3 mL) insulin pen 24 unit subcut QAM cholecalciferol (vitamin D3) 1,000 unit capsule 1,000 unit PO DAILY vitamin B complex tablet 1 tab PO .3xweekly Patient Comments: 1 tablet: vitamin C (120 mg), thiamin (5 mg), riboflavin (5 mg), niacin (25 mg), vitamin B6 (5 mg), folic acid (400 mcg), biotin (300 mcg), pantothenic acid (10 mg). magnesium citrate 125 mg capsule See Rx Instructions PO DAILY Patient Comments: 2-3 capsules PO Daily 4 hrs FROM EITHER CELLCEPT DOSE - REC. MIDDLE OF DAY. 3 capsules PO DAILY; Takes NOW Magnesium Citrate capsules. 2 AM, 1PM. Total elemental Mg is 400 MG Rx Instructions: 2-3 capsules PO Daily 4 hrs FROM EITHER CELLCEPT DOSE - REC. MIDDLE OF DAY. 3 capsules PO DAILY; Takes NOW Magnesium Citrate capsules. 2 AM, 1PM. Total elemental Mg is 400 MG CENTRUM SILVER TABLET 1 EACH tablet 1 tab PO DAILY Patient Comments: Place in the middle of day or 4 hours apart from CellCept ursodiol 300 mg capsule 600 mg PO BID Qty: 180 3RF (DME) lancets [OneTouch UltraSoft Lancets] Misc See Rx Instructions .ROUTE .MEDSUPPLY Qty: 100 3RF Rx Instructions: As directed (DME) blood-glucose meter [OneTouch Ultra2 Meter] Kit See Rx Instructions .ROUTE .MEDSUPPLY Qty: 1 0RF Rx Instructions: As directed Eliquis 5 mg tablet 5 mg PO BID Qty: 180 3RF (DME) insulin syringe-needle U-100 [BD Insulin Syringe Ultra-Fine] 0.3 mL 31 gauge x 5/16 syringe See Rx Instructions .ROUTE .MEDSUPPLY Qty: 100 6RF Rx Instructions: As directed Farxiga 10 mg tablet 10 mg PO DAILY Qty: 90 4RF rosuvastatin [Crestor] 20 mg tablet 20 mg PO DAILY Qty: 90 3RF Hold Instructions: Changed by Provider (DME) [employer] Chang 14 Day Sensor Kit See Rx Instructions .Route Qty: 6 4RF Rx Instructions: As [id number] dofetilide [Tikosyn] 500 mcg capsule 500 mcg PO BID Qty: 180 3RF furosemide 20 mg tablet 20 mg PO DAILY Qty: 90 3RF Hold Instructions: Home Medication placed on hold at Doctor's office (DME) pen needle, diabetic [BD Ultra-Fine Mini Pen Needle] 31 gauge x 3/16 needle See Dose Instructions .ROUTE .MEDSUPPLY Qty: 400 6RF Dose Instruction: As directed Rx Instructions: Once daily. E11.9 Discharge Instructions Stand Alone Forms: Post-op Topical Cataract, Sachin Rosa (DSU) Discharge Orders Discharge Orders: Discharge Order (Routine); Ordered 12/17/22 Ordered By: Joshua Gibbs DS: Diagnosis Discharge Diagnosis (1) Nuclear sclerotic cataract of right eye: Status: Resolved
--- NOTE | 2022-12-17 11:53 | W.PM.OP ---
Date of service: 12/17/22 Time of Service: 11:53 Operative Note Operative Note DATE OF PROCEDURE: 12/17/22 PRE-OP DIAGNOSIS: Nuclear cataract, right eye POST-OP DIAGNOSIS: same PROCEDURE: Cataract extraction using phacoemulsification with intraocular lens implant, right eye SURGEON: Joshua Gibbs ANESTHESIA TYPE: Local By Surgeon and MAC Refer to Anesthesia Record ESTIMATED BLOOD LOSS: 0 PATHOLOGY: none sent COMPLICATIONS: None Patient was transported to: same day Patient's condition: stable Implants: Sanya & Sanya Tecnis Eyhance [id number] Indications: Progressive visual loss due to cataract, right eye Procedure Description: CATARACT SURGERY OPERATIVE REPORT PREOPERATIVE DIAGNOSIS: 1. Nuclear cataract, right eye POSTOPERATIVE DIAGNOSIS: Same OPERATION: 1. Cataract extraction using phacoemulsification with posterior chamber intraocular lens implant, right eye. IOL: IOL Fuel Tank Sealer And Tester/Model: Sanya & Sanya Tecnis Eyhance [id number] IOL Power: + 18.5 diopters IOL Serial Number: [id number] Optic Diameter: 6.0mm Haptic/Overall Diameter: 13.0mm PHACO INFO: [employer] Vision System with OZil and Active Fluidics Cumulative Dispersed Energy (CDE): 11.32 seconds SURGEON: Joshua Gibbs MD, ELIEL ANESTHESIA: Monitored Anesthesia Care (MAC), with local sub-tenon's anesthetic infiltration COMPLICATIONS: None SPECIMENS: None INDICATIONS FOR PROCEDURE: The patient is a 77-year-old male with history of diminished visual acuity in both eyes secondary to the development of bilateral nuclear cataract. He has already undergone cataract surgery in the left eye and is doing well postoperatively. He now presents for cataract surgery in the right eye. PROCEDURE: The correct surgical eye was identified and marked as the right eye and the pupil was dilated in the preoperative area using mydriatics and cycloplegics. The dilated pupil size was 7.0 mm. The patient elected to proceed without oral sedation. The patient was brought to the operating room where cardiopulmonary monitoring was instituted and surgical time-out was performed, confirming the correct operative eye and IOL power. Topical anesthesia was administered and ophthalmic povidone-iodine 5% was instilled into the conjunctival fornices. Lidocaine gel was applied to the cornea and the kimberly-ocular area was prepped with Betadine 10% solution and draped in the usual sterile fashion for intraocular surgery, including an aperture drape. A Tegaderm transparent film dressing was cut in half and used to cover the lashes and lid margins. Care was taken to sequester the lashes and lid margins under the Tegaderm dressing. A lid speculum was placed between the lids of the operative eye and the Wander Lux[employer] Revalia operating microscope was maneuvered into position. Anuj scissors were then used to make a conjunctival buttonhole approximately 6mm posterior to the limbus in the inferonasal quadrant. Blunt dissection was carried out to expose bare sclera, and a blunt-tipped sub-tenon?s anesthesia cannula was introduced and passed posteriorly along the globe where non-preserved plain lidocaine was injected into posterior sub-Tenon?s space. A sideport knife was used to make a paracentesis port inferotemporally. Intraocular phenylephrine/lidocaine was injected into the anterior chamber. The anterior chamber was filled with viscoelastic. A keratome knife was used to construct a 2-plane near-clear corneal tunnel extending 2.0mm into clear cornea superiortemporally. A flap was raised on the anterior capsule and capsulorhexis forceps were used to complete a continuous curvilinear capsulorhexis of 5.5 mm. Balanced salt solution was then used to perform cortical cleaving hydrodissection and nuclear hydrodelineation until the lens could be freely rotated within the capsular bag. The lens nucleus was then disassembled and removed within the capsular bag and iris plane using phacoemulsification. Residual cortical material was removed using the I/A handpiece. The posterior capsule was carefully polished to remove as much residual lens epithelial cells as safely possible. The capsular bag was then inflated and the anterior chamber deepened with viscoelastic. The lens implant described above was inserted into the capsular bag using the Sanya and Jess Simplicity pre-loaded injector. A Kuglen hook was used to dial the IOL into position. Residual viscoelastic was then removed first from posterior to the IOL, then from the anterior chamber using the I/A handpiece. The lens implant was noted to center nicely within the capsular bag. The incisions were stromally hydrated, and the anterior chamber was reformed using BSS. Then 0.5cc of moxifloxacin 1.0mg/ml were injected into the capsular bag and anterior chamber. The incisions were checked with a Weck spear and found to be secure. Several drops of ophthalmic povidone-iodine 5% were then applied to the eye followed by two drops of Imprimis combination prednisolone/moxifloxacin/nepafenac solution. The drapes were removed and a clear plastic protective eye shield was placed over the eye. The patient was then returned to Same Day Surgery in stable condition.
[2022-12-17 12:21] VITALS: BP 116/64; PULSE 61; RESP 16; TEMP 36.6; O2SAT 99
--- NOTE | 2022-12-17 12:46 | W.ANESPOSTOP ---
Postoperative Evaluation Date, Time and Location Date Performed: 12/17/22 Time Performed: 12:46 Patient Location: Day Surgery Unit Vital Signs Most Recent Imported Vital Signs: Most Recent Vital Signs Temp Pulse Resp BP Pulse Ox 36.6 C 61 16 116/64 99 12/17/22 12:21 12/17/22 12:21 12/17/22 12:21 12/17/22 12:21 12/17/22 12:21 Pain Score Most Recent Pain Score: Most Recent Pain Score Pain Level 0 12/17/22 12:21 Assessment Mental Status: Awake (Alert & Oriented to Patient Baseline) Airway and Respiratory Function: Patent airway with normal (patient baseline) respiratory exam Cardiovascular Function: Hemodynamically Stable Hydration Status: Adequately Hydrated Nausea & Vomiting: No Nausea or Vomiting Pain: Pt. Denies Any Pain Peripheral Nerve Block: Patient did not receive a nerve block
== END 2022-12-17 12:19 | disposition home or self-care (01) ==
LOC: SUR 09:38
PROVIDERS: PCP Family Medicine; Visit Provider Ophthalmology
PROC: (CPT 66984; principal; 2022-12-17 12:30)
DX: H25.11 Age-related nuclear cataract, right eye (principal)
CPT/HCPCS: 66984; V2632

== ENCOUNTER 2023-02-06 01:31 | Outpatient (CLI) | payer MEDICARE, SELFPAY ==
--- NOTE | 2023-02-06 | DI.US_ITS ---
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 COMPARISON: US US ABDOMEN LIMITED from 09/25/2022 FINDINGS: LIVER: Enlarged at 18.5 cm in length. Mildly increased heterogeneousechogenicity. No focal liver le sions are seen.. GALLBLADDER: No evidence of cholelithiasis. No evidence of wall thickening. No pericholecystic fluid identified. Small Phrygian cap again noted. LUGO'S SIGN: Negative. BILIARY SYSTEM: No intrahepatic or extrahepatic biliary ductal dilation. RIGHT KIDNEY: Normal size. No evidence of renal calculi. No evidence of hydronephrosis. No suspicious renal mass. No cyst identified. PANCREAS: Normal where visualized. ABDOMINAL AORTA AND IVC: Visualized portions normal caliber. ASCITES: None seen. IMPRESSION: Findings of mild hepatic cirrhosis. No focal lesions. DATA REPOSITORY:
== END 2023-02-06 01:51 ==
LOC: DI 01:32
PROVIDERS: PCP Family Medicine; Visit Provider Internal Medicine Gastroenterology
DX: K74.69 Other cirrhosis of liver (principal); K75.4 Autoimmune hepatitis; R16.0 Hepatomegaly, not elsewhere classified
CPT/HCPCS: 76705

== ENCOUNTER 2023-03-07 09:56 | Outpatient (CLI) | payer MEDICARE, SELFPAY ==
--- NOTE | 2023-03-07 09:45 | RT.EKG_ITS ---
APPROVED REPORT Exam: Resting ECG Reason for Exam: pt on flecainide Patient Location: O HR:87 bpm ECG Measurements Heart Rate 87 AXIS NJ 156 P 50 QRSd 90 QRS 43 QT 391 T 27 QTc 471 Conclusion Sinus rhythm...normal P axis, V-rate 50- 99 Probable left atrial enlargement...P >50mS, <-0.10mV V1 Baseline wander in lead(s) V1,V2
== END 2023-03-07 09:57 | disposition home or self-care (01) ==
LOC: DI.CARD 10:06
PROVIDERS: PCP Family Medicine; Visit Provider Internal Medicine Cardiovascular Disease
DX: Z51.81 Encounter for therapeutic drug level monitoring (principal)
CPT/HCPCS: 93010

== ENCOUNTER → 2023-03-07 10:58 | Outpatient (BNVA) | payer MEDICARE, SELFPAY | PROVIDERS: PCP Family Medicine; Referring Provider Family Medicine; Visit Provider Internal Medicine Cardiovascular Disease | DX: I48.91 Unspecified atrial fibrillation (principal); Z79.01 Long term (current) use of anticoagulants; I25.118 Atherosclerotic heart disease of native coronary artery with other forms of angina pectoris | CPT/HCPCS: 93005; 99214 ==

== ENCOUNTER 2023-03-20 03:30 | Outpatient (CLI) | payer MEDICARE, SELFPAY ==
[2023-03-20 13:29] LABS: Bilirubin Negative (Negative); Blood Negative (Negative); Clarity Clear (Clear); Glucose 500 mg/dL (Negative); Ketones Negative (Negative); Leukocyte Esterase Negative (Negative); Nitrite Negative (Negative); Urobilinogen 0.2 mg/dL (Up to 0.2)
[2023-03-20 13:36] LABS: HCT 44.8 % (40.0-50.0); HGB 14.6 g/dL (13.5-17.5); MCH 28.5 pg (27.0-33.0); MCHC 32.6 % (32.0-36.0); MCV 88 fL (80-95); MPV 9.2 fL (8.0-11.0); Platelet Count 255 10^3/uL (130-400); RBC 5.12 10^6/uL (4.36-5.78); RDW 13.9 % (11.8-14.1); RDW-SD 45.1 fL; WBC 3.79 10^3/uL (4.4-10.8)
[2023-03-20 14:04] LABS: Hemoglobin A1C 7.6 % (<5.7)
[2023-03-20 14:18] LABS: ALT 45 U/L (16-63); AST 21 U/L (15-37); Albumin 3.8 g/dL (3.4-5.0); Alkaline Phosphatase 94 U/L (46-116); Anion Gap 7.6 mmol/L (3-11); BUN 19 mg/dL (7-18); Bilirubin, Total 1.1 mg/dL (0.2-1.0); CO2 31.4 mmol/L (21.0-32.0); Calcium 9.6 mg/dL (8.5-10.1); Chloride 103 mmol/L (98-107); Estimated GFR 76.56 (mL/min/1.73m2); Glucose 156 mg/dL (74-106); Potassium 3.8 mmol/L (3.5-5.1); Sodium 142 mmol/L (136-145); TSH (W/Ref FT4) 2.63 uIU/mL (0.36-3.74); Total Protein 7.7 g/dL (6.4-8.2)
[2023-03-21 10:09] LABS: Lyme Ab w Rflx to Lyme Confirm Negative (Negative)
[2023-03-23 17:26] LABS: Anaplasma phagocytophilum Negative (Negative); B. miyamotoi PCR Negative (Negative); Babesia divergens/MO-1 Negative (Negative); Babesia duncani Negative (Negative); Babesia microti Negative (Negative); Ehrlichia chaffeensis Negative (Negative); Ehrlichia ewingii/canis Negative (Negative); Ehrlichia muris eauclairensis Negative (Negative)
== END 2023-03-20 03:31 | disposition home or self-care (01) ==
LOC: LBO 03:30
PROVIDERS: PCP Family Medicine; Visit Provider Family Medicine
DX: E11.9 Type 2 diabetes mellitus without complications (principal); E78.5 Hyperlipidemia, unspecified; R41.82 Altered mental status, unspecified; R31.9 Hematuria, unspecified; K74.60 Unspecified cirrhosis of liver; I25.118 Atherosclerotic heart disease of native coronary artery with other forms of angina pectoris; I48.91 Unspecified atrial fibrillation; Z11.8 Encounter for screening for other infectious and parasitic diseases
CPT/HCPCS: 36415; 80053; 85027; 87798; 81003; 83036; 84443; 86618

== ENCOUNTER 2023-05-14 19:11 | Outpatient (REF) | payer MEDICARE, SELFPAY ==
[2023-05-14 22:56] LABS: Microalb ug/mg Crea 31.3 ug/mg Cr
== END 2023-05-14 19:12 | disposition home or self-care (01) ==
LOC: LBN 19:11
PROVIDERS: PCP Family Medicine; Visit Provider Family Medicine
DX: E11.9 Type 2 diabetes mellitus without complications (principal)
CPT/HCPCS: 82043; 82570

== ENCOUNTER → 2023-08-26 01:45 | Outpatient (CLI) | payer MEDICARE, SELFPAY ==
--- NOTE | 2023-08-26 | DI.US_ITS ---
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 COMPARISON: US US ABDOMEN LIMITED from 02/06/2023 FINDINGS: There is no ascites evident. LIVER: Hepatomegaly and hepatic steatosis and coarse echotexture throughout the liver again noted wit h nodular surface noted. No discrete focal hepatic lesions. GALLBLADDER/BILIARY: There are no gallstones. No gallbladder wall edema nor pericholecystic fluid. The common hepatic duct isnot dilated, measuring 6mm at the level of vicenta hepatis. PANCREAS: There is no evidence of pancreatic mass nor dilatation of the pancreatic duct. RIGHT KIDNEY:No evidence of solid mass, calculus, nor hydronephrosis. No cortical cysts evident. IMPRESSION: 1. Compared to prior ultrasound examination February 2023 there is again noted hepatic steatosis, hepat omegaly, and cirrhotic-type contour appearance. No discrete ominous focal hepatic lesion identified 2. No evidence of cholelithiasis nor dilatation of the biliary tree. 3. No other right upper quadrant ultrasound findings and there is no ascites. DATA REPOSITORY:
== END ==
PROVIDERS: PCP Family Medicine; Visit Provider Internal Medicine Gastroenterology
DX: K74.60 Unspecified cirrhosis of liver (principal); K75.4 Autoimmune hepatitis
CPT/HCPCS: 76705

== ENCOUNTER 2023-09-05 10:48 | Outpatient (CLI) | payer MEDICARE, SELFPAY ==
--- NOTE | 2023-09-05 11:00 | RT.EKG_ITS ---
APPROVED REPORT Exam: Resting ECG Reason for Exam: f/u med Patient Location: O HR:76 bpm ECG Measurements Heart Rate 76 AXIS AK 165 P 57 QRSd 88 QRS 35 QT 426 T 35 QTc 480 Conclusion Sinus rhythm...normal P axis, V-rate 50- 99 Probable left atrial enlargement...P >50mS, <-0.10mV V1 Borderline prolonged QT interval...QTc >475mS
== END 2023-09-05 10:49 | disposition home or self-care (01) ==
LOC: DI.CARD 11:11
PROVIDERS: PCP Family Medicine; Visit Provider Internal Medicine Cardiovascular Disease
DX: Z79.899 Other long term (current) drug therapy (principal); I25.118 Atherosclerotic heart disease of native coronary artery with other forms of angina pectoris; Z51.81 Encounter for therapeutic drug level monitoring
CPT/HCPCS: 93010

== ENCOUNTER → 2023-09-05 10:48 | Outpatient (BNVA) | payer MEDICARE, SELFPAY | PROVIDERS: PCP Family Medicine; Referring Provider Family Medicine; Visit Provider Internal Medicine Cardiovascular Disease | DX: Z79.01 Long term (current) use of anticoagulants (principal); I25.118 Atherosclerotic heart disease of native coronary artery with other forms of angina pectoris; I48.91 Unspecified atrial fibrillation; Z79.899 Other long term (current) drug therapy; E11.9 Type 2 diabetes mellitus without complications | CPT/HCPCS: 93005; 99214 ==

== ENCOUNTER 2023-09-11 01:55 | Outpatient (CLI) | payer MEDICARE, SELFPAY ==
[2023-09-11 17:23] LABS: Hemoglobin A1C 7.1 % (<5.7)
[2023-09-11 17:56] LABS: ALT 44 U/L (16-63); AST 28 U/L (15-37); Albumin 4.3 g/dL (3.4-5.0); Alkaline Phosphatase 90 U/L (46-116); Anion Gap 9.4 mmol/L (3-11); BUN 16 mg/dL (7-18); Bilirubin, Total 1.8 mg/dL (0.2-1.0); CO2 29.6 mmol/L (21.0-32.0); CREATININE 1.1 mg/dL (0.70-1.30); Calcium 9.8 mg/dL (8.5-10.1); Chloride 103 mmol/L (98-107); Estimated GFR 67.86 (mL/min/1.73m2); Glucose 178 mg/dL (74-106); Potassium 3.7 mmol/L (3.5-5.1); Sodium 142 mmol/L (136-145); Total Protein 7.2 g/dL (6.4-8.2)
== END 2023-09-11 01:56 | disposition home or self-care (01) ==
LOC: LBO 01:55
PROVIDERS: PCP Family Medicine; Visit Provider Family Medicine
DX: E11.9 Type 2 diabetes mellitus without complications (principal); I25.118 Atherosclerotic heart disease of native coronary artery with other forms of angina pectoris; K74.60 Unspecified cirrhosis of liver
CPT/HCPCS: 36415; 80053; 83036

== ENCOUNTER 2024-01-21 04:43 | Outpatient (CLI) | payer MEDICARE, SELFPAY ==
[2024-01-21 16:26] LABS: Hemoglobin A1C 7.3 % (<5.7)
[2024-01-21 17:00] LABS: ALT 31 U/L (16-63); AST 21 U/L (15-37); Albumin 3.9 g/dL (3.4-5.0); Alkaline Phosphatase 81 U/L (46-116); Anion Gap 10.8 mmol/L (3-11); BUN 18 mg/dL (7-18); Bilirubin, Total 1.9 mg/dL (0.2-1.0); CO2 29.2 mmol/L (21.0-32.0); CREATININE 0.9 mg/dL (0.70-1.30); Calcium 9.2 mg/dL (8.5-10.1); Calculated LDL 71 mg/dL (<100); Chloride 106 mmol/L (98-107); Cholesterol 178 mg/dL (<200); Estimated GFR 86.34 (mL/min/1.73m2); Glucose 109 mg/dL (74-106); HDL Cholesterol 48 mg/dL (40-60); Potassium 3.8 mmol/L (3.5-5.1); Sodium 146 mmol/L (136-145); Total Protein 7.1 g/dL (6.4-8.2); Triglyceride 298 mg/dL (<150)
== END 2024-01-21 04:44 | disposition home or self-care (01) ==
LOC: LBO 04:43
PROVIDERS: PCP Family Medicine; Visit Provider Family Medicine
DX: E11.9 Type 2 diabetes mellitus without complications (principal); I10 Essential (primary) hypertension
CPT/HCPCS: 36415; 80053; 80061; 83036

== ENCOUNTER 2024-01-24 03:37 | Outpatient (CLI) | payer MEDICARE, SELFPAY ==
[2024-01-24 16:34] LABS: Abs Immature Grans 0.01 10^3/uL (0.0-0.06); Absolute Basophil Count 0.02 10^3/uL (0.0-0.2); Absolute Eosinophil Count 0.08 10^3/uL (0.0-0.7); Absolute Lymphocyte Count 0.97 10^3/uL (1.2-3.4); Absolute Monocyte Count 0.33 10^3/uL (0.1-0.8); Absolute Neutrophil Count 3.09 10^3/uL (1.2-6.7); Basophils % 0.4; Eosinophils % 1.8; HCT 42.1 % (40.0-50.0); HGB 13.9 g/dL (13.5-17.5); Immature Grans % 0.2; Lymphocytes % 21.6; MCH 28.8 pg (27.0-33.0); MCV 87 fL (80-95); MPV 9.9 fL (8.0-11.0); Monocytes % 7.3; Neutrophils % 68.7; Platelet Count 144 10^3/uL (130-400); RBC 4.83 10^6/uL (4.36-5.78); RDW 13.6 % (11.8-14.1); RDW-SD 43.5 fL
[2024-01-24 16:38] LABS: INR 1.1 (0.9-1.1)
== END 2024-01-24 03:38 | disposition home or self-care (01) ==
LOC: LBO 03:37
PROVIDERS: PCP Family Medicine; Visit Provider Internal Medicine Gastroenterology
DX: K75.4 Autoimmune hepatitis (principal)
CPT/HCPCS: 36415; 80053; 85025; 85610

== ENCOUNTER 2024-03-05 08:19 | Outpatient (CLI) | payer MEDICARE, SELFPAY ==
--- NOTE | 2024-03-05 08:15 | RT.EKG_ITS ---
APPROVED REPORT Exam: Resting ECG Reason for Exam: afib Patient Location: O HR:79 bpm ECG Measurements Heart Rate 79 AXIS OH 152 P 57 QRSd 91 QRS 41 QT 386 T 21 QTc 443 Conclusion Sinus rhythm...normal P axis, V-rate 50- 99 Probable left atrial enlargement...P >50mS, <-0.10mV V1 Baseline wander in lead(s) I,III,aVL,aVF Otherwise normal ECG
== END 2024-03-05 08:20 | disposition home or self-care (01) ==
LOC: DI.CARD 08:25
PROVIDERS: PCP Family Medicine; Visit Provider Internal Medicine Cardiovascular Disease
DX: I48.0 Paroxysmal atrial fibrillation (principal); Z51.81 Encounter for therapeutic drug level monitoring
CPT/HCPCS: 93010

== ENCOUNTER → 2024-03-05 10:49 | Outpatient (BNVA) | payer MEDICARE, SELFPAY | PROVIDERS: PCP Family Medicine; Visit Provider Internal Medicine Cardiovascular Disease | DX: I48.0 Paroxysmal atrial fibrillation (principal); I25.118 Atherosclerotic heart disease of native coronary artery with other forms of angina pectoris; Z79.899 Other long term (current) drug therapy; Z51.81 Encounter for therapeutic drug level monitoring | CPT/HCPCS: 93005; 99213 ==

== ENCOUNTER 2024-05-01 01:43 | Outpatient (CLI) | payer MEDICARE, SELFPAY ==
[2024-05-01 13:55] LABS: HCT 41.4 % (40.0-50.0); HGB 13.8 g/dL (13.5-17.5); MCH 29.3 pg (27.0-33.0); MCHC 33.3 % (32.0-36.0); MCV 88 fL (80-95); MPV 10.1 fL (8.0-11.0); Platelet Count 132 10^3/uL (130-400); RBC 4.71 10^6/uL (4.36-5.78); RDW 13.6 % (11.8-14.1); RDW-SD 43.8 fL; WBC 3.74 10^3/uL (4.4-10.8)
[2024-05-01 14:04] LABS: Prothrombin Time 10.5 sec (9.1-11.1)
[2024-05-01 14:30] LABS: ALT 37 U/L (16-63); AST 20 U/L (15-37); Albumin 3.9 g/dL (3.4-5.0); Alkaline Phosphatase 68 U/L (46-116); Anion Gap 9.3 mmol/L (3-11); BUN 17 mg/dL (7-18); Bilirubin, Total 1.67 mg/dL (0.2-1.0); CO2 27.7 mmol/L (21.0-32.0); CREATININE 0.8 mg/dL (0.70-1.30); Calcium 9.1 mg/dL (8.5-10.1); Chloride 106 mmol/L (98-107); Estimated GFR 89.47 (mL/min/1.73m2); Glucose 130 mg/dL (74-106); Potassium 4.3 mmol/L (3.5-5.1); Sodium 143 mmol/L (136-145); Total Protein 7.1 g/dL (6.4-8.2)
[2024-05-01 23:21] LABS: AFP Tumor Marker <2.5 ng/mL (<8.1)
== END 2024-05-01 01:44 | disposition home or self-care (01) ==
LOC: LBO 01:43
PROVIDERS: PCP Family Medicine; Visit Provider Internal Medicine Gastroenterology
DX: R04.0 Epistaxis (principal); K74.60 Unspecified cirrhosis of liver; I10 Essential (primary) hypertension; I48.0 Paroxysmal atrial fibrillation; K75.4 Autoimmune hepatitis
CPT/HCPCS: 36415; 80053; 85027; 82105; 85610; 85730

== ENCOUNTER 2024-06-16 22:03 | Outpatient (REF) | payer MEDICARE, OTHER, SELFPAY ==
[2024-06-18 20:50] LABS: COMMENT (LAB VIEW ONLY) 208.97 mg/dL; Microalb ug/mg Crea 5.3 ug/mg Cr
== END 2024-06-16 22:04 | disposition home or self-care (01) ==
LOC: LBN 22:03
PROVIDERS: PCP Family Medicine; Visit Provider Family Medicine
DX: E11.9 Type 2 diabetes mellitus without complications (principal)
CPT/HCPCS: 82043; 82570

== ENCOUNTER 2024-09-02 01:42 | Outpatient (CLI) | payer MEDICARE, OTHER, SELFPAY ==
[2024-09-02 11:33] LABS: Absolute Basophil Count 0.01 10^3/uL (0.0-0.2); Absolute Eosinophil Count 0.07 10^3/uL (0.0-0.7); Absolute Lymphocyte Count 0.81 10^3/uL (1.2-3.4); Absolute Monocyte Count 0.34 10^3/uL (0.1-0.8); Absolute Neutrophil Count 1.86 10^3/uL (1.2-6.7); Basophils % 0.3 %; Eosinophils % 2.3 %; HCT 41.3 % (40.0-50.0); HGB 13.4 g/dL (13.5-17.5); Lymphocytes % 26.2 %; MCH 28.9 pg (27.0-33.0); MCHC 32.4 % (32.0-36.0); MCV 89 fL (80-95); MPV 10.3 fL (8.0-11.0); Neutrophils % 60.2 %; Platelet Count 124 10^3/uL (130-400); RBC 4.64 10^6/uL (4.36-5.78); RDW 13.1 % (11.8-14.1); RDW-SD 42.2 fL; WBC 3.09 10^3/uL (4.4-10.8)
== END 2024-09-02 01:43 | disposition home or self-care (01) ==
LOC: LBO 01:43
PROVIDERS: PCP Family Medicine; Visit Provider Internal Medicine Gastroenterology
DX: K74.60 Unspecified cirrhosis of liver (principal); K75.4 Autoimmune hepatitis
CPT/HCPCS: 36415; 85025

== ENCOUNTER 2024-09-09 03:54 | Outpatient (CLI) | payer MEDICARE, OTHER, SELFPAY ==
[2024-09-09 16:09] LABS: Prothrombin Time 10.5 sec (9.1-11.1)
[2024-09-09 16:18] LABS: ALT 59 U/L (16-63); AST 35 U/L (15-37); Albumin 3.7 g/dL (3.4-5.0); Alkaline Phosphatase 69 U/L (46-116); Anion Gap 9.6 mmol/L (3-11); BUN 16 mg/dL (7-18); Bilirubin, Total 1.32 mg/dL (0.2-1.0); CO2 26.4 mmol/L (21.0-32.0); CREATININE 0.8 mg/dL (0.70-1.30); Calcium 9.3 mg/dL (8.5-10.1); Chloride 108 mmol/L (98-107); Estimated GFR 88.91 (mL/min/1.73m2); Glucose 202 mg/dL (74-106); Potassium 4.4 mmol/L (3.5-5.1); Sodium 144 mmol/L (136-145)
== END 2024-09-09 03:55 | disposition home or self-care (01) ==
PROVIDERS: PCP Family Medicine; Visit Provider Internal Medicine Gastroenterology
DX: K75.4 Autoimmune hepatitis (principal); K74.60 Unspecified cirrhosis of liver; I48.0 Paroxysmal atrial fibrillation; I25.10 Atherosclerotic heart disease of native coronary artery without angina pectoris
CPT/HCPCS: 36415; 80053; 85610

== ENCOUNTER 2024-09-10 08:26 | Outpatient (CLI) | payer MEDICARE, OTHER, SELFPAY ==
--- NOTE | 2024-09-10 08:15 | RT.EKG_ITS ---
APPROVED REPORT Exam: Resting ECG Reason for Exam: PAF, dofetilide Patient Location: O HR:72 bpm ECG Measurements Heart Rate 72 AXIS NC 154 P 59 QRSd 94 QRS 32 QT 421 T 6 QTc 461 Conclusion Sinus rhythm...normal P axis, V-rate 50- 99 Probable left atrial enlargement...P >50mS, <-0.10mV V1 Otherwise normal ECG
== END 2024-09-10 08:27 | disposition home or self-care (01) ==
LOC: DI.CARD 08:27
PROVIDERS: PCP Family Medicine; Visit Provider Internal Medicine Cardiovascular Disease
DX: I48.0 Paroxysmal atrial fibrillation (principal)
CPT/HCPCS: 93010

== ENCOUNTER → 2024-09-10 11:07 | Outpatient (BNVA) | payer MEDICARE, OTHER, SELFPAY | PROVIDERS: PCP Family Medicine; Visit Provider Internal Medicine Cardiovascular Disease | DX: I25.10 Atherosclerotic heart disease of native coronary artery without angina pectoris (principal); I48.0 Paroxysmal atrial fibrillation | CPT/HCPCS: 93005; 99213 ==

== ENCOUNTER 2024-09-17 13:42 | Outpatient (CLI) | payer MEDICARE, OTHER, SELFPAY ==
[2024-09-17 13:40] LABS: Glucose 141 mg/dL (74-106)
[2024-09-17 13:41] LABS: Hemoglobin A1C 8.3 % (<5.7)
== END 2024-09-17 13:43 | disposition home or self-care (01) ==
LOC: LBO 13:44
PROVIDERS: PCP Family Medicine; Visit Provider Family Medicine
DX: E11.9 Type 2 diabetes mellitus without complications (principal)
CPT/HCPCS: 36415; 82947; 83036

== ENCOUNTER 2024-12-14 02:40 | Outpatient (CLI) | payer MEDICARE, OTHER, SELFPAY ==
[2024-12-15 10:09] LABS: Lyme Ab w Rflx to Lyme Confirm Negative (Negative)
[2024-12-17 16:57] LABS: Anaplasma phagocytophilum Negative (Negative); B. miyamotoi PCR Negative (Negative); Babesia divergens/MO-1 Negative (Negative); Babesia duncani Negative (Negative); Babesia microti Negative (Negative); Ehrlichia chaffeensis Negative (Negative); Ehrlichia ewingii/canis Negative (Negative); Ehrlichia muris eauclairensis Negative (Negative)
== END 2024-12-14 02:41 | disposition home or self-care (01) ==
PROVIDERS: PCP Family Medicine; Visit Provider Family Medicine
DX: S30.860A Insect bite (nonvenomous) of lower back and pelvis, initial encounter (principal); W57.XXXA Bitten or stung by nonvenomous insect and other nonvenomous arthropods, initial encounter
CPT/HCPCS: 36415; 87798; 86618

== ENCOUNTER → 2025-03-12 10:44 | Outpatient (BNVA) | payer MEDICARE, OTHER, SELFPAY | PROVIDERS: PCP Family Medicine; Visit Provider Internal Medicine Cardiovascular Disease | DX: I48.0 Paroxysmal atrial fibrillation (principal); I25.10 Atherosclerotic heart disease of native coronary artery without angina pectoris; Z79.01 Long term (current) use of anticoagulants | CPT/HCPCS: 99213 ==

== ENCOUNTER 2025-04-05 11:00 | Outpatient (CLI) | payer MEDICARE, OTHER, SELFPAY ==
[2025-04-05 11:36] LABS: Abs Immature Grans 0.01 10^3/uL (0.0-0.06); Absolute Basophil Count 0.01 10^3/uL (0.0-0.2); Absolute Lymphocyte Count 0.92 10^3/uL (1.2-3.4); Absolute Monocyte Count 0.35 10^3/uL (0.1-0.8); Absolute Neutrophil Count 2.59 10^3/uL (1.2-6.7); Basophils % 0.3 %; Eosinophils % 2.5 %; HCT 43.4 % (40.0-50.0); HGB 14.3 g/dL (13.5-17.5); Immature Grans % 0.3 %; Lymphocytes % 23.1 %; MCH 28.3 pg (27.0-33.0); MCHC 32.9 % (32.0-36.0); MCV 86 fL (80-95); MPV 9.8 fL (8.0-11.0); Monocytes % 8.8 %; Platelet Count 132 10^3/uL (130-400); RBC 5.06 10^6/uL (4.36-5.78); RDW 13.4 % (11.8-14.1); RDW-SD 41.8 fL; WBC 3.98 10^3/uL (4.4-10.8)
[2025-04-05 11:45] LABS: Hemoglobin A1C 8.8 % (<5.7)
[2025-04-05 11:55] LABS: INR 1.1 (0.9-1.1); Prothrombin Time 11.2 sec (9.1-11.1)
[2025-04-05 12:21] LABS: ALT 43 U/L (16-63); AST 32 U/L (15-37); Albumin 4.1 g/dL (3.4-5.0); Alkaline Phosphatase 77 U/L (46-116); Anion Gap 10.3 mmol/L (3-11); BUN 16 mg/dL (7-18); Bilirubin, Total 2.7 mg/dL (0.2-1.0); CO2 26.7 mmol/L (21.0-32.0); CREATININE 0.8 mg/dL (0.70-1.30); Calcium 9.3 mg/dL (8.5-10.1); Chloride 103 mmol/L (98-107); Estimated GFR 88.91 (mL/min/1.73m2); Glucose 154 mg/dL (74-106); Potassium 3.9 mmol/L (3.5-5.1); Sodium 140 mmol/L (136-145); Total Protein 7.3 g/dL (6.4-8.2)
== END 2025-04-05 11:01 | disposition home or self-care (01) ==
LOC: LBO 11:00
PROVIDERS: Internal Medicine Gastroenterology; PCP Family Medicine; Visit Provider Family Medicine
DX: K75.4 Autoimmune hepatitis (principal); E11.9 Type 2 diabetes mellitus without complications
CPT/HCPCS: 36415; 80053; 83036; 85025; 85610

== ENCOUNTER 2025-04-09 08:47 | Outpatient (CLI) | payer MEDICARE, OTHER, SELFPAY ==
--- NOTE | 2025-04-09 | DI.US_ITS ---
Exam(s) US ABDOMEN LIMITED EXAM: US ABDOMEN LIMITED CLINICAL HISTORY: CIRRHOSIS OF LIVER W/O ASCTIES, UNSPECIFIED HEPATIC CIRRHOSIS TECHNIQUE: Ultrasound abdomen performed using standard protocol. COMPARISON: US US ABDOMEN LIMITED from 08/26/2023 FINDINGS: PANCREAS: Normal where visualized. LIVER: There is diffuse increased echogenicity of the liver consistent with fatty infiltration. The liver does have a nodular contour. The findings are suspicious for hepatic cirrhosis. Hepatopetal f low in the Portal Vein. The liver measures in 19.1 cm length. No evidence of a hepatic mass. GALLBLADDER: No evidence of cholelithiasis. No evidence of wall thickening. No pericholecystic fluid identified. BILIARY SYSTEM: Common bile duct measures < 7 mm. No intrahepatic biliary ductal dilation. LUGO'S SIGN: Negative. RIGHT KIDNEY: Kidney is normal in size. No evidence of renal calculi. No evidence of hydronephrosis. No renal mass or cyst identified. ASCITES: None seen. IMPRESSION: Findings suggestive of hepatic cirrhosis with hepatic steatosis and hepatomegaly. DATA REPOSITORY:
== END 2025-04-09 09:07 ==
LOC: DI 08:50
PROVIDERS: PCP Family Medicine; Visit Provider Internal Medicine Gastroenterology
DX: K74.60 Unspecified cirrhosis of liver (principal)
CPT/HCPCS: 76705

== ENCOUNTER 2025-07-22 04:26 | Outpatient (CLI) | payer MEDICARE, OTHER, SELFPAY ==
[2025-07-22 09:16] LABS: HCT 46.7 % (40.0-50.0); HGB 14.6 g/dL (13.5-17.5); MCH 27.7 pg (27.0-33.0); MCHC 31.3 % (32.0-36.0); MCV 88 fL (80-95); MPV 10.0 fL (8.0-11.0); Platelet Count 143 10^3/uL (130-400); RBC 5.28 10^6/uL (4.36-5.78); RDW 13.8 % (11.8-14.1); RDW-SD 44.5 fL; WBC 4.60 10^3/uL (4.4-10.8)
[2025-07-22 11:04] LABS: COMMENT (LAB VIEW ONLY) 90.12 mg/dL; Microalb ug/mg Crea 25.4 ug/mg Cr
[2025-07-22 11:07] LABS: Hemoglobin A1C 6.3 % (<5.7)
[2025-07-22 11:24] LABS: ALT 32 U/L (16-63); AST 22 U/L (15-37); Albumin 4.2 g/dL (3.4-5.0); Alkaline Phosphatase 86 U/L (46-116); Anion Gap 9.9 mmol/L (3-11); BUN 27 mg/dL (7-18); Bilirubin, Total 1.5 mg/dL (0.2-1.0); CO2 27.1 mmol/L (21.0-32.0); Calcium 9.3 mg/dL (8.5-10.1); Calculated LDL 61 mg/dL (<100); Chloride 106 mmol/L (98-107); Cholesterol 164 mg/dL (<200); Estimated GFR 60.38 (mL/min/1.73m2); Glucose 133 mg/dL (74-106); HDL Cholesterol 45 mg/dL (>or=40); Potassium 4.0 mmol/L (3.5-5.1); Sodium 143 mmol/L (136-145); Total Protein 7.7 g/dL (6.4-8.2); Triglyceride 293 mg/dL (<150); Vitamin B12 812 pg/mL (193-986)
== END 2025-07-22 04:27 | disposition home or self-care (01) ==
LOC: LBO 04:27
PROVIDERS: PCP Family Medicine; Visit Provider Family Medicine
DX: E11.9 Type 2 diabetes mellitus without complications (principal); R79.89 Other specified abnormal findings of blood chemistry; I10 Essential (primary) hypertension; Z79.01 Long term (current) use of anticoagulants
CPT/HCPCS: 36415; 80053; 80061; 85027; 82043; 82570; 82607; 83036

== ENCOUNTER 2025-09-16 08:19 | Outpatient (CLI) | payer MEDICARE, OTHER, SELFPAY ==
--- NOTE | 2025-09-16 08:15 | RT.EKG_ITS ---
APPROVED REPORT Exam: Resting ECG Reason for Exam: therapeutic drug monitoring-dofedilide Patient Location: O HR:67 bpm ECG Measurements Heart Rate 67 AXIS ME 164 P 57 QRSd 98 QRS 38 QT 435 T 14 QTc 460 Conclusion Sinus rhythm...normal P axis, V-rate 50- 99 Probable left atrial enlargement...P >50mS, <-0.10mV V1 Otherwise normal ECG
== END 2025-09-16 08:20 | disposition home or self-care (01) ==
LOC: DI.CARD 08:20
PROVIDERS: PCP Family Medicine; Visit Provider Internal Medicine Cardiovascular Disease
DX: I48.0 Paroxysmal atrial fibrillation (principal); Z51.81 Encounter for therapeutic drug level monitoring; I51.7 Cardiomegaly
CPT/HCPCS: 93010

== ENCOUNTER → 2025-09-16 10:49 | Outpatient (BNVA) | payer MEDICARE, OTHER, SELFPAY | PROVIDERS: PCP Family Medicine; Visit Provider Internal Medicine Cardiovascular Disease | DX: I48.0 Paroxysmal atrial fibrillation (principal); Z51.81 Encounter for therapeutic drug level monitoring; Z79.01 Long term (current) use of anticoagulants | CPT/HCPCS: 99213; 93005 ==

== ENCOUNTER 2025-09-28 01:45 | Outpatient (CLI) | payer MEDICARE, OTHER, SELFPAY ==
[2025-09-28 15:10] LABS: Abs Immature Grans 0.01 10^3/uL (0.0-0.06); HCT 45.7 % (40.0-50.0); HGB 14.2 g/dL (13.5-17.5); Immature Grans % 0.3 %; MCH 26.6 pg (27.0-33.0); MCHC 31.1 % (32.0-36.0); MCV 86 fL (80-95); MPV 10.0 fL (8.0-11.0); Platelet Count 131 10^3/uL (130-400); RBC 5.33 10^6/uL (4.36-5.78); RDW 14.2 % (11.8-14.1); RDW-SD 44.3 fL; WBC 3.68 10^3/uL (4.4-10.8)
[2025-09-28 15:58] LABS: ALT 20 U/L (10-49); AST 26 U/L (<34); Albumin 4.8 g/dL (3.2-5.0); Alkaline Phosphatase 69 U/L (46-116); Anion Gap 7.3 mmol/L (3-11); BUN 15 mg/dL (9-23); Bilirubin, Direct 0.6 mg/dL (<=0.3); Bilirubin, Total 2.10 mg/dL (0.2-1.2); CO2 27.7 mmol/L (20.0-31.0); Calcium 9.2 mg/dL (8.3-10.6); Chloride 109 mmol/L (98-107); Glucose 89 mg/dL (74-106); Potassium 3.9 mmol/L (3.5-5.1); Sodium 144 mmol/L (136-145); Total Protein 7.6 g/dL (5.7-8.2)
== END 2025-09-28 01:46 | disposition home or self-care (01) ==
LOC: LBO 01:45
PROVIDERS: PCP Family Medicine; Visit Provider Internal Medicine Gastroenterology
DX: K74.60 Unspecified cirrhosis of liver (principal); K75.4 Autoimmune hepatitis
CPT/HCPCS: 36415; 80053; 82105; 82248; 85025; 85610